=== PATIENT | female | born 1955 | race Two or more races ===

== ENCOUNTER 2018-01-31 13:39 | Emergency (ER) | payer MEDICAID ==
[~2018-01-31] VITALS: Ht 152.4 cm; Wt 64.4 kg
[~2018-01-31 13:39] MED LIST: NORPTMEDS
[2018-01-31 15:48] VITALS: BP 129/83
[2018-01-31] MEDS ORDERED: KETOROLAC TROMETH 30 MG/ML 1ML VIAL IM ONE (16:30)
[2018-01-31] MEDS ORDERED: HYDROcodone-ACET 5/325MG TAB PO ONE (16:30)
== END 2018-01-31 17:54 | disposition home or self-care (01) ==
LOC: ER 13:44
DX: M54.9 Dorsalgia, unspecified (principal); G89.29 Other chronic pain; I10 Essential (primary) hypertension; F17.210 Nicotine dependence, cigarettes, uncomplicated
CPT/HCPCS: 72100; 96372; 99284; J1885

== ENCOUNTER 2018-02-20 20:47 | Emergency (ER) | payer MEDICAID, OTHER ==
[~2018-02-20] VITALS: Ht 152.4 cm; Wt 65.3 kg
[2018-02-20 21:43] LABS: Basophils # (auto) 0 uL; Basophils % (auto) 0.7 % (0.0-2.0); Eosinophils # (auto) 0 uL; Eosinophils % (auto) 0.8 % (0.0-7.0); Hematocrit 42.6 % (36.0-46.0); Hemoglobin 14.7 g/dL (12.2-16.2); Lymphocytes # (auto) 2.1 uL; Lymphocytes % (auto) 40.9 % (10.0-50.0); Mean Corpuscular Hemoglobin 29.8 pg (28.0-32.0); Mean Corpuscular Hgb Conc. 34.4 g/dL (32.0-36.0); Mean Corpuscular Volume 86.6 fL (80.0-100.0); Monocytes # (auto) 0.4 uL; Monocytes % (auto) 8.3 % (0.0-12.0); Neutrophils # (auto) 2.5 uL; Neutrophils % (auto) 49.3 % (37.0-80.0); Nucleated Red Blood Cells % 0.3 %; Platelet Count (auto) 139 10^3/uL (140-450); Red Blood Cells 4.92 10^6/uL (4.0-5.20); Red Cell Distribution Width 14.3 % (11.8-14.3); White Blood Cell 5.2 10^3/uL (4.4-10.8)
[2018-02-20 22:04] LABS: Alanine Aminotransferase 72 U/L (13-56); Albumin 3.4 g/dL (3.4-5.0); Alkaline Phosphatase 99 U/L (45-117); Anion Gap 9 (5-15); Aspartate Aminotransferase 67 U/L (15-37); BUN/Creatinine Ratio 22.5; Bilirubin, Total 0.4 mg/dL (0.2-1.0); Blood Urea Nitrogen 16 mg/dL (7-18); Calcium 8.9 mg/dL (8.5-10.1); Carbon Dioxide 28 mmol/L (21-32); Chloride 102 mmol/L (98-107); GFR African American 107 mL/min; GFR Non-African American 88 mL/min; Glucose 94 mg/dL (74-106); Potassium 3.6 mmol/L (3.5-5.1); Sodium 139 mmol/L (136-145); Total Protein 8.2 g/dL (6.4-8.2)
[2018-02-21 01:39] VITALS: BP 96/128
== END 2018-02-21 03:52 | disposition home or self-care (01) ==
LOC: ER 20:47
DX: G51.0 Bell's palsy (principal); E11.9 Type 2 diabetes mellitus without complications; I10 Essential (primary) hypertension
CPT/HCPCS: 36415; 70450; 80053; 84484; 85025; 93005

== ENCOUNTER 2024-05-29 06:45 | Inpatient (IN) | payer MEDICARE, OTHER ==
[~2024-05-29] VITALS: Ht 149.9 cm; Wt 64.0 kg
[2024-05-29] VITALS (9 sets, daily range): BP systolic 167; BP diastolic 85; PULSE 92–103; RESP 18–27; TEMP 97.6; O2SAT 93–99
[2024-05-29 07:18] LABS: Hematocrit 41.9 % (36.0-46.0); Hemoglobin 14.1 g/dL (12.2-16.2); Mean Corpuscular Hemoglobin 27.6 pg (28.0-32.0); Mean Corpuscular Hgb Conc. 33.6 g/dL (32.0-36.0); Platelet Count (auto) 110 10^3/uL (140-450); Red Blood Cells 5.11 10^6/uL (4.0-5.20); Red Cell Distribution Width 14.2 % (11.8-14.3); White Blood Cell 18.1 10^3/uL (4.4-10.8)
--- NOTE | 2024-05-29 07:21 | ED.PDOC ---
SOB-HPI HPI Comments 69 year old female presents to the ED with chief complaint of SOB. Patient reports that she has been experiencing SOB since 05/23, worsening over the past 3 days and with associated symptoms of right sided chest pain that radiates to her back and bloody productive cough. Patient relays that she has history of bronchitis and has an Albuterol inhaler at home for treatment, which she used with some relief noted. Patient denies any fever, chills, headache, abdominal pain, dizziness, or N/V/D. Chief Complaint: Shortness of Breath Time Seen by MD: 07:14 Primary Care Provider: ARIELA Yang notes: Nurses Notes, Medications, Allergies Information Source: Patient Mode of Arrival: Ambulatory Severity: Moderate Timing: Weeks Duration: Since onset Context: At Rest PE Risk Factors: None History of: None Prehospital treatment: Breathing Tx Modifying Factors: Nothing Associated Signs and Symptoms: Cough, Hemoptysis, Chest Pain Quality: Aching Radiation: Back Location: Chest (R) If cough with SOB: Productive, Bloody Past Medical History PAST MEDICAL HISTORY: DM, HTN, Liver, [place] Past Medical History (Other): Hepatitis C Surgical History: Denies all surgeries GUIDANCE DIRECTOR History: No Pertinent GUIDANCE DIRECTOR History Family History Family History: Reviewed,noncontributory to illness, Unknown Social History Smoker: Cigarettes Alcohol: Sober Drugs: Marijuana Lives In: Home Constitutional: denies: chills, diaphoresis, fatigue, fever, malaise, sweats, weakness, others EENTM: denies: blurred vision, double vision, ear bleeding, ear discharge, ear drainage, ear pain, ear ringing, eye pain, eye redness, hearing loss, mouth pain, mouth swelling, nasal discharge, nose bleeding, nose congestion, nose pain, photophobia, tearing, throat pain, throat swelling, voice changes, others Respiratory: reports: cough, hemoptysis, shortness of breath; denies: orthopnea, SOB at rest, SOB with excertion, stridor, wheezing, others Cardiovascular: reports: chest pain (Right sided); denies: dizzy spells, diaphoresis, Dyspnea on exertion, edema, irregular heart beat, left arm pain, lightheadedness, palpitations, PND, syncope, others Gastrointestinal: denies: abdomen distended, abdominal pain, blood streaked bowels, constipated, diarrhea, dysphagia, difficulty swallowing, hematemesis, melena, nausea, poor appetite, poor fluid intake, rectal bleeding, rectal pain, vomiting, others Genitourinary: denies: abnormal vagina bleeding, burning, dyspareunia, dysuria, flank pain, frequency, hematuria, incontinence, pain, , vagina discharge, urgency, others Neurological: denies: dizziness, fainting, headache, left sided numbness, left sided weakness, numbness, paresthesia, pre-existing deficit, right sided numbness, right sided weakness, seizure, speech problems, tingling, tremors, weakness, others Musculoskeletal: denies: back pain, gout, joint pain, joint swelling, muscle pain, muscle stiffness, neck pain, others Integumetry: denies: bruises, change in color, change in hair/nails, dryness, laceration, lesions, lumps, rash, wounds, others Allergic/Immunocompromised: denies: Difficulty Healing, Frequent Infections, Hives, Itching, others Hematologic/Lymphatic: denies: anemia, blood clots, easy bleeding, easy bruising, swollen glands, others Endocrine: denies: excessive hunger, excessive sweating, excessive thirst, excessive urination, flushing, intolerance to cold, intolerance to heat, unexplained weight gain, unexplained weight loss, others Psychiatric: denies: anxiety, bipolar disorder, depression, hopeless, panic disorder, schizophrenia, sleepless, suicidal, others All Other Systems: Reviewed and Negative Physical Exam General Appearance: Mild Distress, Normal HEENT: Normal ENT Inspection, PERRL/EOMI Neck: Full Range of Motion, Non-Tender, Normal, Normal Inspection Respiratory: Chest Non-Tender, Lungs Clear, No Accessory Muscle Use, No Respiratory Distress, Normal Breath Sounds Cardiovascular: No Edema, No JVD, No Murmur, No Gallop, Normal Peripheral Pulses, Tachycardia Breast Exam: Deferred Gastrointestinal: No Organomegaly, Non Tender, No Pulsatile Mass, Normal Bowel Sounds, Soft Genitalia: Deferred Pelvic: Deferred Rectal: Deferred Extremities: No calf tenderness, Normal capillary refill, Normal inspection, Normal range of motion, Non-tender, No pedal edema Musculoskeletal : Apperance: Normal Neurologic: Alert, functional director II-XII nml as Tested, No Motor Deficits, Normal Affect, Normal Mood, No Sensory Deficits Cerebellar Function: Normal Reflexes: Normal Skin: Dry, Normal Color, Warm Lymphatic: No Adenopathy Was a procedure done? Was a procedure done?: No Differential Dx Differential Diagnosis: Asthma, Bronchitis, COPD, Pneumonia, Pulmonary Embolism, URI X-Ray, Labs, Meds, VS Vital Signs Date Time Temp Pulse Resp B/P (MAP) Pulse Ox O2 Delivery O2 Flow Rate FiO2 05/29/24 07:25 98.0 116 17 154/70 (98) 94 98.0 05/29/24 07:25 116 17 05/29/24 06:55 111 05/29/24 06:50 22 94 Room Air* 0 21 05/29/24 06:50 98.3 124 22 180/75 (110) 94 Lab Test 05/29/24 07:56 05/29/24 07:03 Range/Units Troponin I High Sensitivity 10 10 </=34 ng/L White Blood Count 18.1 H 4.4-10.8 10^3/uL Red Blood Count 5.11 4.0-5.20 10^6/uL Hemoglobin 14.1 12.2-16.2 g/dL Hematocrit 41.9 36.0-46.0 % Mean Corpuscular Volume 82.0 80.0-100.0 fL Mean Corpuscular Hemoglobin 27.6 L 28.0-32.0 pg Mean Corpuscular Hemoglobin Concent 33.6 32.0-36.0 g/dL Red Cell Distribution Width 14.2 11.8-14.3 % Platelet Count 110 L 140-450 10^3/uL Mean Platelet Volume 10.4 6.9-10.8 fL Neutrophils (%) (Auto) 37.0-80.0 % Lymphocytes (%) (Auto) 10.0-50.0 % Monocytes (%) (Auto) 0.0-12.0 % Basophils (%) (Auto) 0.0-2.0 % Neutrophils # (Auto) 1.6-8.6 10 ^3/uL Lymphocytes # (Auto) 0.4-5.4 10 ^3/uL Monocytes # (Auto) 0-1.3 10 ^3/uL Differential Total Cells Counted Pending Neutrophils % (Manual) Pending Band Neutrophils % (Manual) Pending Lymphocytes % (Manual) Pending Monocytes % (Manual) Pending Eosinophils % (Manual) Pending Basophils % (Manual) Pending Metamyelocytes % (manual) Pending Myelocytes % (Manual) Pending Promyelocytes % (Manual) Pending Blast Cells % (Manual) Pending Reactive Lymphocytes Pending Platelet Estimate Pending Prothrombin Time 11.4 9.3-11.8 sec Prothrombin Time INR 1.08 0.9-1.15 D-Dimer, Quantitative 0.97 H 0.0-0.49 mg/L FEU Sodium Level 137 136-145 mmol/L Potassium Level 3.4 L 3.5-5.1 mmol/L Chloride Level 104 98-107 mmol/L Carbon Dioxide Level 19 L 20-31 mmol/L Anion Gap 14 5-15 Blood Urea Nitrogen 11 9-23 mg/dL Creatinine 0.68 0.550-1.02 mg/dL Glomerular Filtration Rate Calc 94 >90 mL/min BUN/Creatinine Ratio 16.2 10.0-20.0 Serum Glucose 130 H 74-106 mg/dL Calcium Level 9.3 8.7-10.4 mg/dL Total Bilirubin 1.3 H 0.2-1.0 mg/dL Aspartate Amino Transferase (AST) 42 H 13-40 U/L Alanine Aminotransferase (ALT) 29 7-40 U/L Alkaline Phosphatase 116 46-116 U/L B-Type Natriuretic Peptide 101.24 0-100 pg/mL Total Protein 6.9 5.7-8.2 g/dL Albumin 3.9 3.2-4.8 g/dL Current Medications Medications (Trade) Dose Ordered Sig/Jim Route Start Time Stop Time Status Last Admin Sodium Chloride 1,000 ml @ 1,000 mls/hr Q1H ONCE IV 05/29/24 08:00 05/29/24 08:59 05/29/24 08:14 Loperamide HCl (Imodium Capsule) 4 mg ONCE ONCE PO 05/29/24 08:15 05/29/24 08:16 DC 05/29/24 08:14 Chest XR: FINDINGS: Lines and Tubes: None Lungs: Multifocal airspace disease. Pleura: No effusion. Lucency along the right lateral chest wall. Cardiomediastinal contours: Unremarkable Bones: Chronic appearing healing fracture of the left humerus. IMPRESSION: Multifocal airspace disease, [id number]. Prominent lucency along the right lateral chest may represent a prominent skin fold versus small pneumothorax. Clinical correlation advised. CT could be obtained to further evaluate if clinically indicated. CT Angio Chest: Findings: Pulmonary artery: There is no evidence of a pulmonary arterial filling defect to suggest pulmonary embolism. The main pulmonary artery demonstrates normal caliber. Lungs/Pleura: There are moderate size lobular areas of consolidation in the right middle lobe and posterior left lower lobe. There are smaller similar ar eas of airspace disease in the right upper lobe and minimally in the right lower lobe. There is no evidence of pleural effusion or pneumothorax. The central airways are clear. Heart/Vascular Structures: Normal heart size. The thoracic aorta demonstrates normal caliber. There is no evidence of pericardial effusion. Lymph Nodes: There is no evidence of thoracic lymphadenopathy. Musculoskeletal: No acute osseous abnormality. Upper abdomen: Limited portions of the upper abdomen are unremarkable. IMPRESSION: 1. There is no evidence of a pulmonary arterial filling defect to suggest pulmonary embolism. 2. There there are multilevel areas of lobular consolidation, moderate in size in the right middle lobe and posterior left lower lobe. Findings are compatible with multilobar pneumonia. Clinical correlation is recommended. Images Reviewed?: Images reviewed and evaluated by me Time of 1ST Reevaluation: 08:14 Reevaluation 1ST: Unchanged Time of 2ND Reevaluation: 08:47 Reevaluation 2ND: Unchanged (requiring oxygen 4 L/min by NC, will admit for oxygen and supportive care) Patient Education/Counseling: Diagnosis, Treatment Family Education/Counseling: No Family Present Departure 1 Departure Time of Disposition: 08:46 Impression: Primary Impression: Respiratory failure with hypoxia Additional Impression: Pneumonia Disposition: ADMITTED INPATIENT Condition: Guarded Critical Care Note Critical Care Time?: No Stability Stability form required: No Heart Score Heart Score: Heart Score Response (Comments) Value History N/A 0 EKG N/A 0 Age N/A 0 Risk Factors N/A 0 Troponin N/A 0 Total 0 I personally scribed for RODIRGO LIZAMA MD ([email or web address]) on 05/29/24 at 07:21. Electronically submitted by Ramsey Villagran ([email or web address]). I personally scribed for RODRIGO LIZAMA MD ([email or web address]) on 05/29/24 at 07:22. Electronically submitted by Ramsey Villagran ([email or web address]). I personally scribed for RODRIGO LIZAMA MD ([email or web address]) on 05/29/24 at 07:50. Electronically submitted by Ramsey Villagran ([email or web address]). I personally scribed for RODRIGO LIZAMA MD ([email or web address]) on 05/29/24 at 08:44. Electronically submitted by Ramsey Villagran ([email or web address]). RODRIGO LIZAMA MD May 29, 2024 07:21
[2024-05-29 07:27] LABS: Alanine Aminotransferase 29 U/L (7-40); Albumin 3.9 g/dL (3.2-4.8); Alkaline Phosphatase 116 U/L (46-116); Anion Gap 14 (5-15); Aspartate Aminotransferase 42 U/L (13-40); BUN/Creatinine Ratio 16.2 (10.0-20.0); Blood Urea Nitrogen 11 mg/dL (9-23); Calcium 9.3 mg/dL (8.7-10.4); Carbon Dioxide 19 mmol/L (20-31); Chloride 104 mmol/L (98-107); Glucose 130 mg/dL (74-106); INR 1.08 (0.9-1.15); Potassium 3.4 mmol/L (3.5-5.1); Prothrombin Time 11.4 sec (9.3-11.8); Sodium 137 mmol/L (136-145)
[2024-05-29 07:28] LABS: Bilirubin, Total 1.3 mg/dL (0.2-1.0); Total Protein 6.9 g/dL (5.7-8.2)
[2024-05-29 07:31] LABS: Basophils % (manual) 0 (0.0-2.0); Blast Cells 0; Eosinophils % (manual) 0 (0-7); Metamyelocytes % 0; Myelocytes % 0; Promyelocytes % 0; Reactive Lymphocytes 0
--- NOTE | 2024-05-29 07:47 | DVH ---
CHEST RADIOGRAPH Indication: SOB Technique: Single frontal view of the chest was obtained COMPARISON: None FINDINGS: Lines and Tubes: None Lungs: Multifocal airspace disease. Pleura: No effusion. Lucency along the right lateral chest wall. Cardiomediastinal contours: Unremarkable Bones: Chronic appearing healing fracture of the left humerus. IMPRESSION: Multifocal airspace disease, [id number]-left. Prominent lucency along the right lateral chest may represent a prominent skin fold versus small pneu mothorax. Clinical correlation advised. CT could be obtained to further evaluate if clinically indica terra.
[2024-05-29] MEDS: SODIUM CHLORIDE 0.9% 1,000 ML IV ONE (08:14)
[2024-05-29] MEDS: LOPERAMIDE HCL 2 MG CAP/TAB PO ONE (08:14)
[2024-05-29] MEDS: IOHEXOL 350 MG/ML 100ML IJ ONE (08:17)
--- NOTE | 2024-05-29 08:37 | DVH ---
CTA CHEST INDICATION: SOB TECHNIQUE: Multidetector CTA of the chest was performed of the chest with 100 cc of intravenous contr ast. PULMONARY ANGIOGRAPHY PROTOCOL was utilized using a bolus-tracking technique centered on the wilfrido n pulmonary artery. Axial, coronal and sagittal multiplanar and MIP reformats were performed. Radiation Dose Information: CT Dose: CTDI volume is 10.5 mGy. Dose-length product is 349 mGy*cm The dose indicators for CT are the volume Computed Tomography (CT) Dose Index (CTDIvol) and the Dose Length Product (DLP), and are measured in units of mGy and mGy-cm, respectively. These indicators are not patient dose, but values generated from the CT scanner acquisition factors. The report includes radiation exposure data for exposures received during this examination. Comparison: None. Findings: Pulmonary artery: There is no evidence of a pulmonary arterial filling defect to suggest pulmonary e mbolism. The main pulmonary artery demonstrates normal caliber. Lungs/Pleura: There are moderate size lobular areas of consolidation in the right middle lobe and po sterior left lower lobe. There are smaller similar areas of airspace disease in the right upper lobe and minimally in the right lower lobe. There is no evidence of pleural effusion or pneumothorax. Th e central airways are clear. Heart/Vascular Structures: Normal heart size. The thoracic aorta demonstrates normal caliber. There is no evidence of pericardial effusion. Lymph Nodes: There is no evidence of thoracic lymphadenopathy. Musculoskeletal: No acute osseous abnormality. Upper abdomen: Limited portions of the upper abdomen are unremarkable. IMPRESSION: 1. There is no evidence of a pulmonary arterial filling defect to suggest pulmonary embolism. 2. There there are multilevel areas of lobular consolidation, moderate in size in the right middle l obe and posterior left lower lobe. Findings are compatible with multilobar pneumonia. Clinical correl ation is recommended. HS:Y
[2024-05-29 08:51] LABS: Band Neutrophils % (manual) 6; Large Platelets FEW; Lymphocytes % (manual) 4 (10.0-50.0); Monocytes % (manual) 17 (0-12); Platelet Estimate Decrea
[2024-05-29] MEDS: cefTRIAXone 1GM/50ML D5W 50 ML IV ONE (08:56)
[2024-05-29] MEDS: AZITHROMYCIN 500MG/ 250ML 250 ML IV ONE (09:26)
[2024-05-29] MEDS ORDERED: hydrALAZINE HCL 20 MG/ML VL IV PRN (09:45)
[2024-05-29] MEDS: hydrALAZINE HCL 20 MG/ML VL IV ONE (10:05)
[2024-05-29] MEDS: POTASSIUM EFFERVESENT TAB 25 MEQ GT ONE (10:08)
[2024-05-29] MEDS ORDERED: LOPERAMIDE HCL 2 MG CAP/TAB PO PRN (10:15)
[2024-05-29 10:16] LABS: Lactic Acid w/Reflex 2.1 mmol/L (0.4-2.0)
[2024-05-29] MEDS ORDERED: MORPHINE SULFATE INJ 2 MG/ml SYRG IV PRN ×2 (10:30)
[2024-05-29] MEDS ORDERED: DOCUSATE SOD 100 MG CAP PO PRN (10:30)
[2024-05-29] MEDS: SODIUM CHLORIDE 0.9% 1,000 ML IV SCH (10:30)
[2024-05-29] MEDS ORDERED: ONDANSETRON HCL 4 MG/2 ML VIAL IV PRN (10:30)
[2024-05-29] MEDS ORDERED: ALBUTEROL SULF 2.5 MG/0.5ML(0.5%) NEB SOLN NEB PRN (10:30)
[2024-05-29] MEDS ORDERED: ACETAMINOPHEN 325 MG TAB PO PRN (10:30)
[2024-05-29] MEDS ORDERED: NITROGLYCERIN 0.4 MG SL TAB SL PRN (10:30)
[2024-05-29] MEDS ORDERED: HYDROcodone-ACET 5/325MG TAB PO PRN (10:30)
--- NOTE | 2024-05-29 10:30 | DVHHP2 ---
History of Present Illness Reason for Visit: Shortness of breath History of Present Illness Bhavna Cosme is a 69YO F with pmHx of Bronchitis and HTN who presents to the ED for shortness of breath and diarrhea x 5 days. Upon examination patient reports that she recently had the flu and recently recovered. Patient reports s he uses an inhaler for her shortness of breath but came in because her symptoms were progressively getting worse. Patient also reports coughing up bloody phlegm for the past several days. Patient denies fever, chills, abdominal pain, dizziness, N/V and hematuria. Cardiovascular: HTN Pulmonary: Bronchitis Past Surgical History: Tubal Ligation Family History: None Smoke: No ALCOHOL: rare Drugs: None Lives: with Family Domestic Violence: Neg Review of Systems Constitutional: No: Fever, Chills, Sweats, Weakness, Malaise, Other Eyes: No: Pain, Vision change, Conjunctivae inflammation, Eyelid inflammation, Other, Redness ENT: No: Ear pain, Ear discharge, Nose pain, Nose discharge, Nose congestion, Mouth pain, Mouth swelling, Throat pain, Throat swelling, Other Respiratory: Cough, Shortness of breath, SOB with excertion; No: Dry, Wheezing, Hemoptysis, Pleuritic Pain, Sputum, Wheezing, Other Cardiovascular: No: Chest Pain, Palpitations, Orthopnea, Paroxysmal Noc. Dyspnea, Edema, Lt Headedness, Other Gastrointestinal: Diarrhea; No: Nausea, Vomiting, Abdominal Pain, Constipation, Melena, Hematochezia, Other Genitourinary: No Dysuria, No Frequency, No Incontinence, No Hematuria, No Retention, No Other Musculoskeletal: No: other, neck pain, shoulder pain, arm pain, back pain, hand pain, leg pain, foot pain Skin: No: Rash, Lesions, Jaundice, Bruising, Other Neurological: No: Weakness, Numbness, Incoordination, Change in speech, Confusion, Seizures, Other Allergies: Coded Allergies: NO KNOWN ALLERGIES (Unverified , 04/28/15) Medications Current Medications Medications Dose Ordered Sig/Jim Route Start Time Stop Time Status Last Admin Dose Admin Hydralazine HCl 10 mg Q6HP PRN IV 05/29/24 09:45 UNV Exam Vital Signs Vital Signs Date Time Temp Pulse Resp B/P (MAP) Pulse Ox O2 Delivery O2 Flow Rate FiO2 11/27/24 08:56 104 19 183/64 (103) 98 05/29/24 07:25 98.0 98.0 05/29/24 06:50 Room Air* 0 21 General Appearance: Alert, Oriented X3, Cooperative HEENT: PERRLA, EOMI, Mucous membr. moist/pink Respiratory: Normal air movement Cardiovascular: Normal S1, Normal S2, No murmurs Abdominal: Normal bowel sounds, Soft, No tenderness, No hepatospenomegaly Extremities: No clubbing, No cyanosis, No edema, Normal pulses, No tenderness/swelling Skin: No rashes, No breakdown, No significant lesion Neuro: Normal gait, Normal speech, Strength at 5/5 X4 ext, Normal tone, Sensation intact Psych/Mental Status: Mental status NL, Mood NL Labs/Xrays Labs Test 05/29/24 09:36 05/29/24 07:03 Range/Units White Blood Count 18.1 H 4.4-10.8 10^3/uL Red Blood Count 5.11 4.0-5.20 10^6/uL Hemoglobin 14.1 12.2-16.2 g/dL Hematocrit 41.9 36.0-46.0 % Mean Corpuscular Volume 82.0 80.0-100.0 fL Mean Corpuscular Hemoglobin 27.6 L 28.0-32.0 pg Mean Corpuscular Hemoglobin Concent 33.6 32.0-36.0 g/dL Red Cell Distribution Width 14.2 11.8-14.3 % Platelet Count 110 L 140-450 10^3/uL Mean Platelet Volume 10.4 6.9-10.8 fL Neutrophils (%) (Auto) 37.0-80.0 % Lymphocytes (%) (Auto) 10.0-50.0 % Monocytes (%) (Auto) 0.0-12.0 % Basophils (%) (Auto) 0.0-2.0 % Neutrophils # (Auto) 1.6-8.6 10 ^3/uL Lymphocytes # (Auto) 0.4-5.4 10 ^3/uL Monocytes # (Auto) 0-1.3 10 ^3/uL Differential Total Cells Counted 100.0 100 Neutrophils % (Manual) 73 37.0-80.0 Band Neutrophils % (Manual) 6 Lymphocytes % (Manual) 4 L 10.0-50.0 Monocytes % (Manual) 17 H 0-12 Eosinophils % (Manual) 0 0-7 Basophils % (Manual) 0 0.0-2.0 Metamyelocytes % (manual) 0 Myelocytes % (Manual) 0 Promyelocytes % (Manual) 0 Blast Cells % (Manual) 0 Reactive Lymphocytes 0 Platelet Estimate Decrea Large Platelets Few Prothrombin Time 11.4 9.3-11.8 sec Prothrombin Time INR 1.08 0.9-1.15 D-Dimer, Quantitative 0.97 H 0.0-0.49 mg/L FEU Sodium Level 137 136-145 mmol/L Potassium Level 3.4 L 3.5-5.1 mmol/L Chloride Level 104 98-107 mmol/L Carbon Dioxide Level 19 L 20-31 mmol/L Anion Gap 14 5-15 Blood Urea Nitrogen 11 9-23 mg/dL Creatinine 0.68 0.550-1.02 mg/dL Glomerular Filtration Rate Calc 94 >90 mL/min BUN/Creatinine Ratio 16.2 10.0-20.0 Serum Glucose 130 H 74-106 mg/dL Calcium Level 9.3 8.7-10.4 mg/dL Total Bilirubin 1.3 H 0.2-1.0 mg/dL Aspartate Amino Transferase (AST) 42 H 13-40 U/L Alanine Aminotransferase (ALT) 29 7-40 U/L Alkaline Phosphatase 116 46-116 U/L B-Type Natriuretic Peptide 101.24 0-100 pg/mL Total Protein 6.9 5.7-8.2 g/dL Albumin 3.9 3.2-4.8 g/dL CTA CHEST INDICATION: SOB Comparison: None. Findings: Pulmonary artery: There is no evidence of a pulmonary arterial filling defect to suggest pulmonary embolism. The main pulmonary artery demonstrates normal caliber. Lungs/Pleura: There are moderate size lobular areas of consolidation in the right middle lobe and posterior left lower lobe. There are smaller similar areas of airspace disease in the right upper lobe and minimally in the right lower lobe. There is no evidence of pleural effusion or pneumothorax. The central airways are clear. Heart/Vascular Structures: Normal heart size. The thoracic aorta demonstrates normal caliber. There is no evidence of pericardial effusion. Lymph Nodes: There is no evidence of thoracic lymphadenopathy. Musculoskeletal: No acute osseous abnormality. Upper abdomen: Limited portions of the upper abdomen are unremarkable. IMPRESSION: 1. There is no evidence of a pulmonary arterial filling defect to suggest pulmonary embolism. 2. There there are multilevel areas of lobular consolidation, moderate in size in the right middle lobe and posterior left lower lobe. Findings are compatible with multilobar pneumonia. Clinical correlation is recommended. CHEST RADIOGRAPH Indication: SOB FINDINGS: Lines and Tubes: None Lungs: Multifocal airspace disease. Pleura: No effusion. Lucency along the right lateral chest wall. Cardiomediastinal contours: Unremarkable Bones: Chronic appearing healing fracture of the left humerus. IMPRESSION: Multifocal airspace disease, [id number]-mjvy-left. Prominent lucency along the right lateral chest may represent a prominent skin fold versus small pneumothorax. Clinical correlation advised. CT could be obtained to further evaluate if clinically indicated. Assessment/Plan Assessment/Plan Assessment: Acute on chronic COPD exacerbation with PNA Sepsis Transaminitis Hypokalemia Hx of Bronchitis HTN Plan: Admit to tele Pain management IVf Resp txs O2 prn diet as tolerated IV and PO ABx Antihypertensives Antidiarrheals Steroids CT chest noted CXR noted Blood cultures Trend troponin's Trend lactic acid Monitor labs AM labs Home medications reconciled Discussed plan of care with patient and nurse Plan discussed with: Patient My Orders Orders - RAUL DIXON Procedure Category Date Status Time Hydralazine Injection PHA 05/29/24 Logged (Apresoline Inject 09:45 Hydralazine Injection PHA 05/29/24 Logged (Apresoline Inject 09:45 Potassium Effervesent PHA 05/29/24 Logged Tab (Klor-Con/Ef) 10:00 Problem List: (1) Respiratory failure with hypoxia (2) Pneumonia (3) Sepsis (4) Hypertension Date of Service: May 29, 2024 Billing Provider: RAUL DIXON Common Visit Codes: [id number] INP/OBS CARE (MOD) RAUL DIXON May 29, 2024 10:30
[2024-05-29] MEDS ORDERED: PARO1TAB33 PO (10:33)
[2024-05-29] MEDS ORDERED: MONT-8 PO (10:33)
[2024-05-29] MEDS ORDERED: EMPA1TAB PO (10:33)
--- NOTE | 2024-05-29 10:40 | ECG ---
[facility] Test Date: 2024-05-29 Test Time: 06:55:31 Pat Name: MELANY CARLSON Department: ER Room: [address] [place] [address] Gender: F Uke Driver: BIJAL : 1955 Requested By: RODRIGO LIZAMA Order Number: [id number] Reading MD: Riaz Miller Measurements Intervals [place] Rate: 111 P: 56 NE: 138 QRS: 73 QRSD: 87 T: 71 QT: 345 QTc: 469 Interpretive Statements Sinus tachycardia Borderline T abnormalities, anterior leads Electronically Signed On 05-29-2024 14:18:31 PST by Riaz Miller Please click the below link to view image of tracing.
[2024-05-29] MEDS ORDERED: ACETAMINOPHEN 500 MG TAB PO PRN (10:45)
[2024-05-29] MEDS: methylPREDNISolone SOD SUCC 40 MG/ML VL IV ONE (10:48)
[2024-05-29 11:38] LABS: CRP High Sensitivity 6.56 mg/dL (<1.0)
[2024-05-29 11:50] LABS: Erythrocyte Sedimentation Rate 25 mm/hr (0-20)
[2024-05-29] MEDS: ALBUTEROL SULF 2.5 MG/0.5ML(0.5%) NEB SOLN NEB SCH (13:13)
[2024-05-29] MEDS: ASCORBIC ACID 500 MG TAB PO SCH (22:09)
[2024-05-30] VITALS (14 sets, daily range): BP systolic 137–167; BP diastolic 56–103; PULSE 82–125; RESP 17–20; TEMP 97.5–99.9; O2SAT 93–100
[2024-05-30 07:19] LABS: Basophils # (auto) 0 10 ^3/uL (0-0.2); Basophils % (auto) 0.1 % (0.0-2.0); Eosinophils # (auto) 0 10 ^3/uL (0-0.8); Hematocrit 38.4 % (36.0-46.0); Hemoglobin 12.7 g/dL (12.2-16.2); Lymphocytes # (auto) 0.8 10 ^3/uL (0.4-5.4); Lymphocytes % (auto) 4.9 % (10.0-50.0); Mean Corpuscular Hemoglobin 27.2 pg (28.0-32.0); Mean Corpuscular Volume 82.5 fL (80.0-100.0); Monocytes # (auto) 1.7 10 ^3/uL (0-1.3); Monocytes % (auto) 10.4 % (0.0-12.0); Neutrophils # (auto) 13.7 10 ^3/uL (1.6-8.6); Neutrophils % (auto) 84.6 % (37.0-80.0); Platelet Count (auto) 138 10^3/uL (140-450); Red Blood Cells 4.66 10^6/uL (4.0-5.20); Red Cell Distribution Width 14.1 % (11.8-14.3); White Blood Cell 16.2 10^3/uL (4.4-10.8)
[2024-05-30 07:24] LABS: Alanine Aminotransferase 26 U/L (7-40); Albumin 3.4 g/dL (3.2-4.8); Alkaline Phosphatase 101 U/L (46-116); Anion Gap 11 (5-15); Aspartate Aminotransferase 36 U/L (13-40); BUN/Creatinine Ratio 21.3 (10.0-20.0); Blood Urea Nitrogen 13 mg/dL (9-23); Calcium 9.1 mg/dL (8.7-10.4); Carbon Dioxide 22 mmol/L (20-31); Chloride 103 mmol/L (98-107); Sodium 136 mmol/L (136-145)
[2024-05-30 07:25] LABS: Bilirubin, Total 1.1 mg/dL (0.2-1.0); Total Protein 6.3 g/dL (5.7-8.2)
[2024-05-30 07:30] LABS: Glucose 108 mg/dL (74-106); Potassium 3.3 mmol/L (3.5-5.1)
[2024-05-30 07:55] LABS: Magnesium 2.1 mg/dL (1.6-2.6)
[2024-05-30 07:58] LABS: Phosphorus 2.3 mg/dL (2.4-5.1)
[2024-05-30] MEDS: LOSARTAN POTASSIUM 50 MG TAB PO SCH ×2 (09:28→18:09)
[2024-05-30] MEDS: cefTRIAXone 1GM/50ML D5W 50 ML IV SCH (09:28)
[2024-05-30] MEDS: ZINC SULFATE 220mg CAP or TAB PO SCH (09:28)
[2024-05-30] MEDS: MULTIPLE VITAMIN TAB PO SCH (09:29)
[2024-05-30] MEDS: AZITHROMYCIN 250 MG TAB PO SCH (09:30)
[2024-05-30] MEDS ORDERED: AZITHROMYCIN 250 MG TAB PO SCH (10:00)
[2024-05-30] MEDS ORDERED: methylPREDNISolone SOD SUCC 40 MG/ML VL IV SCH (10:00)
[2024-05-30 10:36] LABS: Rapid Influenza A Negative (Negative); Rapid Influenza B Negative (Negative)
[2024-05-30 10:37] LABS: COVID19 ANTIGEN SOFIA FIA NEGATIVE (NEGATIVE)
[2024-05-30] MEDS: POTASSIUM CHLORIDE 60 MEQ, LIDOCAINE 1% (LOCAL ANESTH.) 6 ML in SODIUM CHL 0.9% 500 ML IV ONE (11:36)
--- NOTE | 2024-05-30 13:58 | DVHSR ---
APPROVED REPORT EXAM: Two-dimensional and M-mode echocardiogram with Doppler and color Doppler. INDICATION rule out chf DIMENSIONS LVDd3.9 (3.8-5.7cm)LA (2D)3.3 (1.9-4.0cm)Aortic Root3.4 (2.0-3.7cm) LVDs2.7 (2.5-4.0cm)LA (MM) (1.9-4.0cm)Aortic Cusp Exc1.6 (1.5-2.0cm) EF (%) 60.4 (55-70%)Rt. Atrium2.7 (1.9-4.0cm)Asc. Aorta cm IVSd1.1 (0.7-1.1cm)RV (D)2.2 (1.8-2.4cm) PWd1.0 (0.7-1.1cm) Mitral Valve MitralMitral Stenosis E wave0.63m/sMV Mean GR.mmHg A wave1.14m/sMV Peak GR.117mmHg E/A ratio0.62D MVAcm2 DECEL [id number] 1/2 [place] Aortic Valve Aortic ValveAortic Stenosis V11.16m/Cuate Mean GR.3mmHg V21.37m/Cuate Peak GR.7mmHg Pulmonic Valve V20.81m/s Tricuspid Valve TR Velocity2.32m/s [id number] Other Information Technically limited study due to body habitus. Conclusion Normal left ventricular size and dimension. Normal left ventricular systolic function estimated ejec tion fraction 55%. There is a grade1 diastolic dysfunction. Normal right ventricular size and dimension. Normal right ventricular systolic function. Estimated right ventricular systolic pressure 26 mm of mercury Normal biatrial size and dimension. Normal aortic valve structure and function. Normal mitral valve structure and function. Normal tricuspid valve structure and function. The pulmonary valve is grossly normal. No pericardial effusion.
[2024-05-30] MEDS ORDERED: VANCOMYCIN PER PHARMACY 0 MG IV SCH (16:00)
--- NOTE | 2024-05-30 16:16 | DVHPNRES ---
Progress Note Date Seen: May 30, 2024 Resident Creating Document: GONZALO FRANCOIS RESIDENT Has the PT tested + for MRSA If YES, has PT been informed?: No Medical Necessity Reason Pt with a Central, PICC or Fol: No Subjective Review of Systems A 69 year old woman with past medical history of COPD and hypertension come to the ED for shortness of breath for about 2 or 3 months ago but exacerbates from 5 days also patient came with a cough with bloody sputum and mild fevers. Pt had previously history of smoking Objective vital signs Vital Sign Date Time Temp Pulse Resp B/P (MAP) Pulse Ox O2 Delivery O2 Flow Rate FiO2 05/30/24 13:00 97.5 97 17 152/90 (110) 96 97.5 05/30/24 08:00 Nasal Cannula* 2 28 Total Intake and Output 05/29/24 05/29/24 05/30/24 15:00 23:00 07:00 Intake Total 1175 ml 700 ml Balance 1175 ml 700 ml medications Current Medications Medications Dose Ordered Sig/Jim Route Start Time Stop Time Status Last Admin Dose Admin Ceftriaxone Sodium 50 ml @ 100 mls/hr DAILY@09 IV 05/30/24 09:00 05/30/24 09:28 100 MLS/HR Sodium Chloride 1,000 ml @ 60 mls/hr [id number] IV 05/29/24 10:30 05/30/24 03:21 60 MLS/HR Acetaminophen/ Hydrocodone Bitart 1 tab Q4HP PRN PO 05/29/24 10:30 Ondansetron HCl 4 mg Q4HP PRN IV 05/29/24 10:30 Zinc Sulfate 220 mg DAILY PO 05/30/24 10:00 05/30/24 09:28 220 MG Ascorbic Acid 500 mg BID PO 05/29/24 22:00 05/30/24 09:30 500 MG Multivitamins 1 tab DAILY PO 05/30/24 10:00 05/30/24 09:29 1 TAB Acetaminophen 650 mg Q6HP PRN PO 05/29/24 10:30 Hold Nitroglycerin 0.4 mg Q5MINP PRN SL 05/29/24 10:30 Azithromycin 250 mg DAILY PO 05/30/24 10:00 05/30/24 09:30 250 MG Albuterol 2.5 mg Q4HR NEB 05/29/24 14:00 05/30/24 07:17 2.5 MG Albuterol 2.5 mg Q2HPRN PRN NEB 05/29/24 10:30 Acetaminophen 500 mg Q4HPRN PRN PO 05/29/24 10:45 Losartan Potassium 50 mg DAILY PO 05/30/24 10:00 05/30/24 09:28 50 MG Methylprednisolone Sodium Succinate 40 mg BID IV 05/30/24 22:00 Vancomycin HCl 0 ml @ 0 mls/hr UD IV 05/30/24 16:00 UNV Examination GEN: Healthy appearing, well-developed, NAD. with o2 2 lt PSYCH: Good Judgment. AOx3. Normal memory, mood, and affect. HEENT -Head: normocephalic atraumatic, no facial trauma, neck is supple -Eyes: PERRL, EOMI. No discharge or redness; -Ears: External ears are normal. Normal TMs. -Nose: Normal nares. NECK: Supple, with no masses. CV: RRR, no m/r/g. LUNGS: minished sounds with expiration wheezing ABD: Soft, ND/NT. No evidence of fluid wave. No pulsatile masses on exam, rebound tenderness, Liu sign or pain over Mcburney's point. : N/A SKIN: Warm, well perfused. No skin rashes or abnormal lesions. MSK: No deformities or signs of scoliosis. Normal gait. EXT: No clubbing, cyanosis, or edema. NEURO: Ambulating with no limitations. Normal muscle strength and tone. No focal deficits. laboratory and microbiology Laboratory Tests 05/30/24 06:35 Test 05/30/24 06:35 Range/Units Serum Glucose 108 H 74-106 mg/dL Microbiology Date/Time Source Procedure Growth Status 05/29/24 09:36 Blood Blood Culture - Preliminary NO GROWTH AFTER 24 HOURS OF INCUBATION. Resulted Problem List/Assessment/Plan Problem List/Assessment/Plan #Acute respiratory failure due to pneumonia and COPD exacerbation #Sepsis due to pneumonia and bacteremia gram positive #Hemoptysis #Acute on chronic COPD exacerbation #Acute on chronic diastolic heart failure #Hypertensive heart disease #Multilobar pneumonia due to gram + most likely #Transaminitis #Hypokalemia #Hypertension #PE ruled out Angio ct scan: 1. There is no evidence of a pulmonary arterial filling defect to suggest pulmonary embolism. 2. There there are multilevel areas of lobular consolidation, moderate in size in the right middle lobe and posterior left lower lobe. Findings are compatible with multilobar pneumonia. Clinical correlation is recommended. Blood culture: may 29: gram + cocci in clusters Further work up: Pulmonology consulted for possible bronchoscopy Viral panel negative Pending respiratory cultures and quantiferon O2 2 lts IV AB: ceftriaxone, vancomycin and azythromycin Breathing treatments Methylpredinosone 40 mg IV BID Fluids 60 cc/h Case discussed with Dr Melton Time spent on care 23 min Plan discussed with: Patient, Other My Orders My Orders Orders - GONZALO FRANCOIS RESIDENT Procedure Category Date Status Time Urinalysis LAB 05/30/24 Logged 07:25 Drug Screen LAB 05/30/24 Logged 07:25 Losartan Tablet PHA 05/30/24 In Process (Cozaar Tablet) 10:00 Mrsa Screen HENNY 05/30/24 In Process 09:48 Echo 2d Mode Cardiac US 05/30/24 Resulted DOP 08:20 *Consult CONS 05/30/24 Transmitted / 13:14 Methylprednisolone PHA 05/30/24 In Process Sod Succ (Solu Medrol 22:00 Hiv 1&2 Antibody LAB 05/30/24 In Process 13:14 Quantiferon-Tb Gold LAB 05/30/24 In Process 13:14 Respiratory Culture HENNY 05/30/24 Logged W/ Gs 13:14 Vancomycin Per PHA 05/30/24 Logged Pharmacy 16:00 Vancomycin 1.5gm/300ml PHA 05/30/24 In Process 16:00 Date of Service: May 30, 2024 Billing Provider: PAN MELTON MD Common Visit Codes: [id number] INP/OBS CARE(HIGH) GONZALO FRANCOIS RESIDENT May 30, 2024 16:16 PAN MELTON MD Jun 01, 2024 22:58
--- NOTE | 2024-05-30 18:14 | DVHINCON2 ---
Date of service: May 30, 2024 Referring Physician TERRELL Parra Reason for Consultation Hemoptysis History of Present Illness A 69-year-old woman with past medical history of COPD, bronchitis and hypertension who presents to the ED with c/o shortness of breath and diarrhea x 5 days with associated cough and hemoptysis. Patient reports that she recently recovered from the flu. States she uses an inhaler for shortness of breath but came in because symptoms were progressively getting worse. Also reports coughing up bloody phlegm for the past several days. Otherwise she denies fever, chills, abdominal pain, dizziness, N/V or hematuria. Patient was admitted for further care and pulmonary consultation is requested for evaluation and management due to these findings. Review of Systems: 14-point review of systems negative unless otherwise noted above. Past Medical History: COPD, hypertension, bronchitis. Past Surgical History: Tubal Ligation Medications: Reviewed. Allergies: No known drug allergies. Family History: No family history of premature CAD. No family history of lung disorders. Social History: Nonsmoker. No alcohol or illicit drug use. Family History: Arthritis G8 FATHER Diabetes mellitus G8 MOTHER Hypertension G8 MOTHER G8 FATHER Allergies: Coded Allergies: NO KNOWN ALLERGIES (Unverified , 04/28/15) Home Meds Reported Medications Paroxetine Hydrochloride (Paroxetine Hydrochloride) 20 Mg Tab, 1 TAB PO DAILY 05/29/24 Montelukast Sodium (MONTELUKAST SODIUM) 10 Mg Tab, 1 TAB PO DAILY 05/29/24 Empagliflozin (Jardiance) 10 Mg Tab, 1 TAB PO DAILY 05/29/24 Current Medications Current Medications Medications (Trade) Dose Ordered Sig/Jim Route PRN Reason Start Time Stop Time Status Last Admin Ceftriaxone Sodium 50 ml @ 100 mls/hr DAILY@09 IV 05/30/24 09:00 05/30/24 09:28 Azithromycin (Zithromax Tablet) 500 mg DAILY PO 05/30/24 10:00 05/29/24 10:20 DC Methylprednisolone Sodium Succinate (Solu Medrol) 40 mg DAILY IV 05/30/24 10:00 05/29/24 10:29 DC Zinc Sulfate 220 mg DAILY PO 05/30/24 10:00 05/30/24 09:28 Ascorbic Acid (Vitamin C Tablet) 500 mg BID PO 05/29/24 22:00 11/28/24 09:30 Multivitamins (Mvi Tab) 1 tab DAILY PO 05/30/24 10:00 05/30/24 09:29 Azithromycin (Zithromax Tablet) 250 mg DAILY PO 05/30/24 10:00 05/30/24 09:30 Losartan Potassium (Cozaar Tablet) 50 mg DAILY PO 05/30/24 10:00 05/30/24 17:20 DC 05/30/24 09:28 Methylprednisolone Sodium Succinate (Solu Medrol) 40 mg BID IV 05/30/24 22:00 Vancomycin HCl 0 ml @ 0 mls/hr UD IV 05/30/24 16:00 Vancomycin HCl 150 ml @ 150 mls/hr Q12H IV 05/31/24 04:00 Losartan Potassium (Cozaar Tablet) 100 mg DAILY PO 05/30/24 17:30 Vital Signs Vital Signs Date Time Temp Pulse Resp B/P (MAP) Pulse Ox O2 Delivery O2 Flow Rate FiO2 05/30/24 17:00 99.9 96 17 167/103 (124) 93 99.9 05/30/24 08:00 Nasal Cannula* 2 28 Physical Exam Gen.: Patient lying in bed in no apparent distress. On supplemental oxygen. Head: Normocephalic, atraumatic. Eyes: EOMI/PERRLA. Ears: Normal hearing. Normal anatomy. Neck/trachea: Trachea midline, supple. Nose: Normal external anatomy. Mouth: Moist mucous membranes. Chest: Decreased air entry bilaterally. No wheezing or rhonchi. Cardiovascular: Positive S1, positive S2. Regular rate and rhythm. Abdomen: Positive bowel sounds in all 4 quadrants. Soft, non-tender, non- distended. : Deferred. Rectal: Deferred. Skin: Warm, dry. Intact. Extremities: 2+ radial pulses bilaterally. No lower extremity edema. Neuro: Awake, alert, oriented x3. No gross motor or sensory deficits. Cranial nerves II through XII intact. Gait not assessed. Labs/Diagnostic Data Labs Test 05/30/24 14:58 05/30/24 09:30 05/30/24 06:35 05/29/24 09:36 Range/Units HIV (1&2) Antibody Negative Negative Influenza Type A Antigen Negative Negative Influenza Type B Antigen Negative Negative SARS-CoV-2 Antigen (Rapid) Negative NEGATIVE White Blood Count 16.2 H 4.4-10.8 10^3/uL Red Blood Count 4.66 4.0-5.20 10^6/uL Hemoglobin 12.7 12.2-16.2 g/dL Hematocrit 38.4 36.0-46.0 % Mean Corpuscular Volume 82.5 80.0-100.0 fL Mean Corpuscular Hemoglobin 27.2 L 28.0-32.0 pg Mean Corpuscular Hemoglobin Concent 33.0 32.0-36.0 g/dL Red Cell Distribution Width 14.1 11.8-14.3 % Platelet Count 138 L 140-450 10^3/uL Mean Platelet Volume 9.8 6.9-10.8 fL Neutrophils (%) (Auto) 84.6 H 37.0-80.0 % Lymphocytes (%) (Auto) 4.9 L 10.0-50.0 % Monocytes (%) (Auto) 10.4 0.0-12.0 % Eosinophils (%) (Auto) 0.0 0.0-7.0 % Basophils (%) (Auto) 0.1 0.0-2.0 % Neutrophils # (Auto) 13.7 H 1.6-8.6 10 ^3/uL Lymphocytes # (Auto) 0.8 0.4-5.4 10 ^3/uL Monocytes # (Auto) 1.7 H 0-1.3 10 ^3/uL Eosinophils # (Auto) 0 0-0.8 10 ^3/uL Basophils # (Auto) 0 0-0.2 10 ^3/uL Nucleated Red Blood Cells 0.0 % Sodium Level 136 136-145 mmol/L Potassium Level 3.3 L 3.5-5.1 mmol/L Chloride Level 103 98-107 mmol/L Carbon Dioxide Level 22 20-31 mmol/L Anion Gap 11 5-15 Blood Urea Nitrogen 13 9-23 mg/dL Creatinine 0.61 0.550-1.02 mg/dL Glomerular Filtration Rate Calc 96 >90 mL/min BUN/Creatinine Ratio 21.3 H 10.0-20.0 Serum Glucose 108 H 74-106 mg/dL Hemoglobin A1c 5.7 <5.7 % A1C Lactic Acid Level 1.2 0.4-2.0 mmol/L Calcium Level 9.1 8.7-10.4 mg/dL Phosphorus Level 2.3 L 2.4-5.1 mg/dL Magnesium Level 2.1 1.6-2.6 mg/dL Total Bilirubin 1.1 H 0.2-1.0 mg/dL Aspartate Amino Transferase (AST) 36 13-40 U/L Alanine Aminotransferase (ALT) 26 7-40 U/L Alkaline Phosphatase 101 46-116 U/L Total Protein 6.3 5.7-8.2 g/dL Albumin 3.4 3.2-4.8 g/dL Thyroid Stimulating Hormone (TSH) 0.91 0.55-4.78 uIU/mL Troponin I High Sensitivity 11 </=34 ng/L Test 05/29/24 07:03 Range/Units Differential Total Cells Counted 100.0 100 Neutrophils % (Manual) 73 37.0-80.0 Band Neutrophils % (Manual) 6 Lymphocytes % (Manual) 4 L 10.0-50.0 Monocytes % (Manual) 17 H 0-12 Eosinophils % (Manual) 0 0-7 Basophils % (Manual) 0 0.0-2.0 Metamyelocytes % (manual) 0 Myelocytes % (Manual) 0 Promyelocytes % (Manual) 0 Blast Cells % (Manual) 0 Reactive Lymphocytes 0 Platelet Estimate Decrea Large Platelets Few Erythrocyte Sedimentation Rate 25 H 0-20 mm/hr Prothrombin Time 11.4 9.3-11.8 sec Prothrombin Time INR 1.08 0.9-1.15 D-Dimer, Quantitative 0.97 H 0.0-0.49 mg/L FEU C-Reactive Protein High Sensitivity 6.56 H <1.0 mg/dL B-Type Natriuretic Peptide 101.24 0-100 pg/mL Lipase 30 12-53 U/L Microbiology Date/Time Source Procedure Growth Status 05/29/24 09:36 Blood Blood Culture - Preliminary NO GROWTH AFTER 24 HOURS OF INCUBATION. Resulted Assessment Impression: Acute hypoxic respiratory failure Hemoptysis Acute on chronic COPD exacerbation Pneumonia Sepsis Transaminitis Hypokalemia Hypertension Plan: Supplemental oxygen Titrate to keep O2 sats above 92%. Taper O2 as tolerated. CXR demonstrates multifocal airspace disease, [id number]-left. CTA demonstrated no e/o pulmonary embolism. Multilevel areas of lobular consolidation, moderate in size in the right middle lobe and posterior left lower lobe. Findings are compatible with multilobar pneumonia. Bronchodilators. Antibiotics Monitor renal function. Monitor electrolytes. Supplement as necessary. Monitor ins and outs. Potassium supplementation DVT prophylaxis. Prognosis: Poor given patient's multiple co-morbidities. Rest of plan per hospitalist and other consultants. Thank you TERRELL Parra, for allowing me to participate in this patient's care. Further recommendations will depend on the patient's clinical course. Please do not hesitate to contact me if you have any questions or concerns. This medical document was created using an electronic medical record system with [employer] dictation system. Although these documentations are being carefully reviewed, there may still be some phonetic and typographical changes. The errors are purely typographical, due to imperfection on the software program, and do not reflect any compromise in the patient's medical care. Plan discussed with: Patient, Other (RN, TERRELL Clark MD) HEIDI ALMANZA MD May 30, 2024 18:14
[2024-05-30] MEDS: methylPREDNISolone SOD SUCC 40 MG/ML VL IV SCH (22:15)
[2024-05-31] VITALS (19 sets, daily range): BP systolic 122–182; BP diastolic 60–100; PULSE 82–108; RESP 16–20; TEMP 97.6–98.5; O2SAT 93–100
[2024-05-31] MEDS: VANCOMYCIN 750mg/150ml 150 ML IV SCH (03:40)
[2024-05-31 06:51] LABS: Hematocrit 39.2 % (36.0-46.0); Hemoglobin 12.9 g/dL (12.2-16.2); Mean Corpuscular Hemoglobin 27.5 pg (28.0-32.0); Mean Corpuscular Volume 83.4 fL (80.0-100.0); Platelet Count (auto) 140 10^3/uL (140-450); Red Cell Distribution Width 14.2 % (11.8-14.3); White Blood Cell 11.9 10^3/uL (4.4-10.8)
[2024-05-31 06:57] LABS: Band Neutrophils % (manual) 0; Basophils % (manual) 0 (0.0-2.0); Blast Cells 0; Metamyelocytes % 0; Myelocytes % 0; Promyelocytes % 0; Reactive Lymphocytes 0
[2024-05-31 07:08] LABS: Alanine Aminotransferase 31 U/L (7-40); Albumin 3.4 g/dL (3.2-4.8); Alkaline Phosphatase 109 U/L (46-116); Anion Gap 12 (5-15); Aspartate Aminotransferase 47 U/L (13-40); BUN/Creatinine Ratio 23.5 (10.0-20.0); Bilirubin, Total 1.1 mg/dL (0.2-1.0); Blood Urea Nitrogen 12 mg/dL (9-23); Calcium 8.9 mg/dL (8.7-10.4); Carbon Dioxide 19 mmol/L (20-31); Chloride 105 mmol/L (98-107); Glucose 172 mg/dL (74-106); Potassium 4.1 mmol/L (3.5-5.1); Sodium 136 mmol/L (136-145); Total Protein 6.5 g/dL (5.7-8.2)
[2024-05-31 07:41] LABS: Eosinophils % (manual) 1 (0-7); Lymphocytes % (manual) 6 (10.0-50.0); Monocytes % (manual) 10 (0-12)
[2024-05-31 07:44] LABS: Platelet Estimate Decreased
[2024-05-31] MEDS: amLODIPine BESYLATE 5 MG TAB PO SCH (10:56)
--- NOTE | 2024-05-31 18:01 | DVHPNRES ---
Progress Note Date Seen: May 31, 2024 Resident Creating Document: GONZALO FRANCOIS RESIDENT Has the PT tested + for MRSA If YES, has PT been informed?: No Medical Necessity Reason Pt with a Central, PICC or Fol: No Subjective Review of Systems A 69 year old woman with past medical history of COPD and hypertension come to the ED for shortness of breath for about 2 or 3 months ago but exacerbates from 5 days also patient came with a cough with bloody sputum and mild fevers. Pt had previously history of smoking Objective vital signs Vital Sign Date Time Temp Pulse Resp B/P (MAP) Pulse Ox O2 Delivery O2 Flow Rate FiO2 05/31/24 17:00 98.3 92 19 122/89 (100) 95 98.3 05/31/24 13:55 Nasal Cannula* 3 32 Total Intake and Output 05/30/24 05/30/24 05/31/24 15:00 23:00 07:00 Intake Total 50 ml 1520 ml 1150 ml Balance 50 ml 1520 ml 1150 ml medications Current Medications Medications Dose Ordered Sig/Jim Route Start Time Stop Time Status Last Admin Dose Admin Ceftriaxone Sodium 50 ml @ 100 mls/hr DAILY@09 IV 05/30/24 09:00 05/31/24 09:00 100 MLS/HR Sodium Chloride 1,000 ml @ 60 mls/hr [id number] IV 05/29/24 10:30 05/31/24 12:48 60 MLS/HR Acetaminophen/ Hydrocodone Bitart 1 tab Q4HP PRN PO 05/29/24 10:30 Ondansetron HCl 4 mg Q4HP PRN IV 05/29/24 10:30 Zinc Sulfate 220 mg DAILY PO 05/30/24 10:00 05/31/24 10:55 220 MG Ascorbic Acid 500 mg BID PO 05/29/24 22:00 05/31/24 10:00 500 MG Multivitamins 1 tab DAILY PO 05/30/24 10:00 05/31/24 10:00 1 TAB Acetaminophen 650 mg Q6HP PRN PO 05/29/24 10:30 Hold Nitroglycerin 0.4 mg Q5MINP PRN SL 05/29/24 10:30 Azithromycin 250 mg DAILY PO 05/30/24 10:00 05/31/24 10:55 250 MG Albuterol 2.5 mg Q4HR NEB 05/29/24 14:00 05/31/24 13:55 2.5 MG Albuterol 2.5 mg Q2HPRN PRN NEB 05/29/24 10:30 Acetaminophen 500 mg Q4HPRN PRN PO 05/29/24 10:45 Methylprednisolone Sodium Succinate 40 mg BID IV 05/30/24 22:00 05/31/24 10:55 40 MG Vancomycin HCl 0 ml @ 0 mls/hr UD IV 05/30/24 16:00 Vancomycin HCl 150 ml @ 150 mls/hr Q12H IV 05/31/24 04:00 05/31/24 15:20 150 MLS/HR Losartan Potassium 100 mg DAILY PO 05/30/24 17:30 05/31/24 10:55 100 MG Amlodipine Besylate 5 mg DAILY PO 05/31/24 10:00 05/31/24 10:56 5 MG Examination GEN: Healthy appearing, well-developed, NAD. with o2 2 lt PSYCH: Good Judgment. AOx3. Normal memory, mood, and affect. HEENT -Head: normocephalic atraumatic, no facial trauma, neck is supple -Eyes: PERRL, EOMI. No discharge or redness; -Ears: External ears are normal. Normal TMs. -Nose: Normal nares. NECK: Supple, with no masses. CV: RRR, no m/r/g. LUNGS: minished sounds with expiration wheezing ABD: Soft, ND/NT. No evidence of fluid wave. No pulsatile masses on exam, rebound tenderness, Liu sign or pain over Mcburney's point. : N/A SKIN: Warm, well perfused. No skin rashes or abnormal lesions. MSK: No deformities or signs of scoliosis. Normal gait. EXT: No clubbing, cyanosis, or edema. NEURO: Ambulating with no limitations. Normal muscle strength and tone. No focal deficits laboratory and microbiology Laboratory Tests 05/31/24 06:08 Test 05/31/24 06:08 Range/Units Serum Glucose 172 H 74-106 mg/dL Microbiology Date/Time Source Procedure Growth Status 05/30/24 17:00 Sputum Gram Stain Pending Resulted 05/30/24 17:00 Sputum Respiratory Culture - Preliminary Resulted 05/30/24 09:30 Nose MRSA Screen - Final Complete 05/29/24 09:36 Blood Blood Culture - Preliminary NO GROWTH AFTER 48 HOURS OF INCUBATION. Resulted Problem List/Assessment/Plan Problem List/Assessment/Plan #Acute respiratory failure due to pneumonia and COPD exacerbation #Sepsis due to pneumonia gram+/- and bacteremia MRSA #Hemoptysis #Acute on chronic COPD exacerbation #chronic diastolic heart failure #Hypertensive heart disease #Multilobar pneumonia due to gram + most likely #Transaminitis #Hypokalemia #Hypertension #PE ruled out Angio ct scan: 1. There is no evidence of a pulmonary arterial filling defect to suggest pulmonary embolism. 2. There there are multilevel areas of lobular consolidation, moderate in size in the right middle lobe and posterior left lower lobe. Findings are compatible with multilobar pneumonia. Clinical correlation is recommended. Blood culture: may 29: MRSA Further work up: Pulmonology consulted for possible bronchoscopy Viral panel negative Pending respiratory cultures and quantiferon O2 2 lts IV AB: ceftriaxone, vancomycin and azythromycin Breathing treatments Methylpredinosone 40 mg IV BID Fluids 60 cc/h Losartan 100 mg PO Amlodipine 5 mg PO Case discussed with Dr Melton Time spent on care 23 min Plan discussed with: Patient, Other (rn) My Orders My Orders Orders - GONZALO FRANCOIS Procedure Category Date Status Time Amlodipine Tablet PHA 05/31/24 In Process (Norvasc Tablet) 10:00 Complete Blood Count LAB 06/01/24 Verified 04:00 Comprehensive LAB 06/01/24 Verified Metabolic Panel 04:00 Date of Service: May 31, 2024 Billing Provider: PAN MELTON MD Common Visit Codes: [id number] INP/OBS CARE(HIGH) GONZALO FRANCOIS May 31, 2024 18:01 PAN MELTON MD Jun 01, 2024 22:59
--- NOTE | 2024-05-31 21:59 | DVHPN2 ---
"Progress Note - Dictate Date Seen: May 31, 2024 Has the PT tested + for MRSA If YES, has PT been informed?: No Medical Necessity Reason Pt with a Central, PICC or Fol: No Subjective Patient seen and examined at bedside. Remains on supplemental oxygen Overnight events reviewed. vital signs Vital Sign Date Time Temp Pulse Resp B/P (MAP) Pulse Ox O2 Delivery O2 Flow Rate FiO2 05/31/24 19:02 89 18 99 05/31/24 18:54 Nasal Cannula 2.0 05/31/24 18:54 28 05/31/24 17:00 98.3 122/89 (100) 98.3 Total Intake and Output 05/30/24 05/30/24 05/31/24 15:00 23:00 07:00 Intake Total 50 ml 1520 ml 1150 ml Balance 50 ml 1520 ml 1150 ml medications Current Medications Medications Dose Ordered Sig/Jim Route Start Time Stop Time Status Last Admin Dose Admin Ceftriaxone Sodium 50 ml @ 100 mls/hr DAILY@09 IV 05/30/24 09:00 05/31/24 09:00 100 MLS/HR Sodium Chloride 1,000 ml @ 60 mls/hr [id number] IV 05/29/24 10:30 05/31/24 12:48 60 MLS/HR Acetaminophen/ Hydrocodone Bitart 1 tab Q4HP PRN PO 05/29/24 10:30 Ondansetron HCl 4 mg Q4HP PRN IV 05/29/24 10:30 Zinc Sulfate 220 mg DAILY PO 05/30/24 10:00 05/31/24 10:55 220 MG Ascorbic Acid 500 mg BID PO 05/29/24 22:00 05/31/24 10:00 500 MG Multivitamins 1 tab DAILY PO 05/30/24 10:00 05/31/24 10:00 1 TAB Acetaminophen 650 mg Q6HP PRN PO 05/29/24 10:30 Hold Nitroglycerin 0.4 mg Q5MINP PRN SL 05/29/24 10:30 Azithromycin 250 mg DAILY PO 05/30/24 10:00 05/31/24 10:55 250 MG Albuterol 2.5 mg Q4HR NEB 05/29/24 14:00 05/31/24 18:54 2.5 MG Albuterol 2.5 mg Q2HPRN PRN NEB 05/29/24 10:30 Acetaminophen 500 mg Q4HPRN PRN PO 05/29/24 10:45 Methylprednisolone Sodium Succinate 40 mg BID IV 05/30/24 22:00 05/31/24 10:55 40 MG Vancomycin HCl 0 ml @ 0 mls/hr UD IV 05/30/24 16:00 Vancomycin HCl 150 ml @ 150 mls/hr Q12H IV 05/31/24 04:00 05/31/24 15:20 150 MLS/HR Losartan Potassium 100 mg DAILY PO 05/30/24 17:30 05/31/24 10:55 100 MG Amlodipine Besylate 5 mg DAILY PO 05/31/24 10:00 05/31/24 10:56 5 MG objective Gen.: Patient lying in bed in no apparent distress. On supplemental oxygen. Head: Normocephalic, atraumatic. Eyes: EOMI/PERRLA. Ears: Normal hearing. Normal anatomy. Neck/trachea: Trachea midline, supple. Nose: Normal external anatomy. Mouth: Moist mucous membranes. Chest: Decreased air entry bilaterally. No wheezing or rhonchi. Cardiovascular: Positive S1, positive S2. Regular rate and rhythm. Abdomen: Positive bowel sounds in all 4 quadrants. Soft, non-tender, non- distended. : Deferred. Rectal: Deferred. Skin: Warm, dry. Intact. Extremities: 2+ radial pulses bilaterally. No lower extremity edema. Neuro: Awake, alert, oriented x3. No gross motor or sensory deficits. Cranial nerves II through XII intact. Gait not assessed. laboratory and microbiology Laboratory Tests 05/31/24 06:08 Test 05/31/24 06:08 Range/Units Serum Glucose 172 H 74-106 mg/dL Assessment/Plan Impression: Acute hypoxic respiratory failure Hemoptysis Acute on chronic COPD exacerbation Pneumonia d/t MRSA. Atelectasis Sepsis Transaminitis Hypokalemia Hypertension Hx of nicotine dependence (quit in 2009). Events: Remains on supplemental oxygen, 2 LPM NC Taper O2 as tolerated Continue antibiotics - vancomycin/ceftriaxone. Continue steroids Incentive spirometry Labs and imaging reviewed. Rest of plan as noted below. Plan: Supplemental oxygen Titrate to keep O2 sats above 92%. Taper O2 as tolerated. CXR demonstrates multifocal airspace disease, [id number]-left. CTA demonstrated no e/o pulmonary embolism. Multilevel areas of lobular consolidation, moderate in size in the right middle lobe and posterior left lower lobe. Findings are compatible with multilobar pneumonia. Bronchodilators. Antibiotics Monitor renal function. Monitor electrolytes. Supplement as necessary. Monitor ins and outs. Potassium supplementation DVT prophylaxis. Prognosis: Poor given patient's multiple co-morbidities. Rest of plan per hospitalist and other consultants. Thank you TERRELL Parra, for allowing me to participate in this patient's care. Further recommendations will depend on the patient's clinical course. Please do not hesitate to contact me if you have any questions or concerns. This medical document was created using an electronic medical record system with [employer] dictation system. Although these documentations are being carefully reviewed, there may still be some phonetic and typographical changes. The errors are purely typographical, due to imperfection on the software program, and do not reflect any compromise in the patient's medical care. Plan discussed with: Patient, Other (RN) HEIDI ALMANZA MD May 31, 2024 21:59"
[2024-06-01] VITALS (20 sets, daily range): BP systolic 140–194; BP diastolic 62–90; PULSE 78–99; RESP 16–21; TEMP 97.4–98.7; O2SAT 94–100
[2024-06-01 04:59] LABS: Hematocrit 38.8 % (36.0-46.0); Mean Corpuscular Hemoglobin 27.6 pg (28.0-32.0); Mean Corpuscular Hgb Conc. 33.4 g/dL (32.0-36.0); Mean Corpuscular Volume 82.6 fL (80.0-100.0); Platelet Count (auto) 137 10^3/uL (140-450)
[2024-06-01 05:04] LABS: Basophils % (manual) 0 (0.0-2.0); Blast Cells 0; Eosinophils % (manual) 0 (0-7); Metamyelocytes % 0; Myelocytes % 0; Promyelocytes % 0; Reactive Lymphocytes 0
[2024-06-01 05:15] LABS: Alanine Aminotransferase 36 U/L (7-40); Albumin 3.4 g/dL (3.2-4.8); Alkaline Phosphatase 110 U/L (46-116); Anion Gap 12 (5-15); Blood Urea Nitrogen 14 mg/dL (9-23); Chloride 106 mmol/L (98-107); Sodium 137 mmol/L (136-145)
[2024-06-01 05:16] LABS: Total Protein 6.7 g/dL (5.7-8.2)
[2024-06-01 05:18] LABS: Aspartate Aminotransferase 43 U/L (13-40); Carbon Dioxide 19 mmol/L (20-31); Glucose 223 mg/dL (74-106)
[2024-06-01 06:52] LABS: Band Neutrophils % (manual) 4; Giant Platelets Few; Lymphocytes % (manual) 10 (10.0-50.0); Monocytes % (manual) 7 (0-12); Platelet Estimate Decreased
--- NOTE | 2024-06-01 08:58 | DVHPNRES ---
Progress Note Date Seen: Jun 01, 2024 Resident Creating Document: GONZALO FRANCOIS RESIDENT Has the PT tested + for MRSA If YES, has PT been informed?: No Medical Necessity Reason Pt with a Central, PICC or Fol: No Subjective Review of Systems A 69 year old woman with past medical history of COPD and hypertension come to the ED for shortness of breath for about 2 or 3 months ago but exacerbates from 5 days also patient came with a cough with bloody sputum and mild fevers. Pt had previously history of smoking Objective vital signs Vital Sign Date Time Temp Pulse Resp B/P (MAP) Pulse Ox O2 Delivery O2 Flow Rate FiO2 06/01/24 08:38 97.4 99 16 194/83 (120) 96 97.4 06/01/24 06:43 Nasal Cannula* 2 28 Total Intake and Output 05/31/24 05/31/24 06/01/24 15:00 23:00 07:00 Intake Total 50 ml 1350 ml 150 ml Output Total 780 ml 0 ml Balance 50 ml 570 ml 150 ml medications Current Medications Medications Dose Ordered Sig/Jim Route Start Time Stop Time Status Last Admin Dose Admin Ceftriaxone Sodium 50 ml @ 100 mls/hr DAILY@09 IV 05/30/24 09:00 05/31/24 09:00 100 MLS/HR Sodium Chloride 1,000 ml @ 60 mls/hr [id number] IV 05/29/24 10:30 06/01/24 05:10 60 MLS/HR Acetaminophen/ Hydrocodone Bitart 1 tab Q4HP PRN PO 05/29/24 10:30 Ondansetron HCl 4 mg Q4HP PRN IV 05/29/24 10:30 Zinc Sulfate 220 mg DAILY PO 05/30/24 10:00 05/31/24 10:55 220 MG Ascorbic Acid 500 mg BID PO 05/29/24 22:00 05/31/24 22:05 500 MG Multivitamins 1 tab DAILY PO 05/30/24 10:00 05/31/24 10:00 1 TAB Acetaminophen 650 mg Q6HP PRN PO 05/29/24 10:30 Hold Nitroglycerin 0.4 mg Q5MINP PRN SL 05/29/24 10:30 Azithromycin 250 mg DAILY PO 05/30/24 10:00 05/31/24 10:55 250 MG Albuterol 2.5 mg Q4HR NEB 05/29/24 14:00 06/01/24 06:43 2.5 MG Albuterol 2.5 mg Q2HPRN PRN NEB 05/29/24 10:30 Acetaminophen 500 mg Q4HPRN PRN PO 05/29/24 10:45 Methylprednisolone Sodium Succinate 40 mg BID IV 05/30/24 22:00 05/31/24 22:06 40 MG Vancomycin HCl 0 ml @ 0 mls/hr UD IV 05/30/24 16:00 Vancomycin HCl 150 ml @ 150 mls/hr Q12H IV 05/31/24 04:00 06/01/24 03:50 150 MLS/HR Losartan Potassium 100 mg DAILY PO 05/30/24 17:30 05/31/24 10:55 100 MG Hydralazine HCl 10 mg Q6HP PRN IV 06/01/24 08:30 Amlodipine Besylate 10 mg DAILY PO 06/01/24 08:30 Examination GEN: Healthy appearing, well-developed, NAD. with o2 2 lt PSYCH: Good Judgment. AOx3. Normal memory, mood, and affect. HEENT -Head: normocephalic atraumatic, no facial trauma, neck is supple -Eyes: PERRL, EOMI. No discharge or redness; -Ears: External ears are normal. Normal TMs. -Nose: Normal nares. NECK: Supple, with no masses. CV: RRR, no m/r/g. LUNGS: minished sounds with expiration wheezing ABD: Soft, ND/NT. No evidence of fluid wave. No pulsatile masses on exam, rebound tenderness, Liu sign or pain over Mcburney's point. : N/A SKIN: Warm, well perfused. No skin rashes or abnormal lesions. MSK: No deformities or signs of scoliosis. Normal gait. EXT: No clubbing, cyanosis, or edema. NEURO: Ambulating with no limitations. Normal muscle strength and tone. No focal deficits laboratory and microbiology Laboratory Tests 06/01/24 04:46 Test 06/01/24 04:46 Range/Units Serum Glucose 223 H 74-106 mg/dL Microbiology Date/Time Source Procedure Growth Status 05/30/24 17:00 Sputum Gram Stain Pending Resulted 05/30/24 17:00 Sputum Respiratory Culture - Preliminary Resulted 05/30/24 09:30 Nose MRSA Screen - Final Complete 05/29/24 09:36 Blood Blood Culture - Preliminary NO GROWTH AFTER 48 HOURS OF INCUBATION. Resulted Problem List/Assessment/Plan Problem List/Assessment/Plan #Acute respiratory failure due to pneumonia and COPD exacerbation #Sepsis due to pneumonia gram+/- and bacteremia MRSA #Hemoptysis #Acute on chronic COPD exacerbation #chronic diastolic heart failure #Hypertensive heart disease #Multilobar pneumonia due to gram + most likely #Transaminitis #Hypokalemia #Hypertension #PE ruled out Angio ct scan: 1. There is no evidence of a pulmonary arterial filling defect to suggest pulmonary embolism. 2. There there are multilevel areas of lobular consolidation, moderate in size in the right middle lobe and posterior left lower lobe. Findings are compatible with multilobar pneumonia. Clinical correlation is recommended. Blood culture: may 29: MRSA Further work up: Pulmonology consulted for possible bronchoscopy Viral panel negative Pending respiratory cultures prelim staph and quantiferon O2 2 lts IV AB: ceftriaxone, vancomycin and azythromycin Breathing treatments Methylpredinosone 40 mg IV BID Stop Fluids 60 cc/h Losartan 100 mg PO Amlodipine 10 mg PO Hydralazine PRN Case discussed with Dr Herman Time spent on care 23 min Plan discussed with: Patient, Other (rn) My Orders My Orders Orders - GONZALO FRANCOIS Procedure Category Date Status Time Hydralazine Injection PHA 06/01/24 In Process (Apresoline Inject 08:30 Amlodipine Tablet PHA 06/01/24 In Process (Norvasc Tablet) 08:30 Date of Service: Jun 01, 2024 Billing Provider: ASHLEY HERMAN MD Common Visit Codes: [id number] INP/OBS CARE(HIGH) GONZALO FRANCOIS Jun 01, 2024 08:58 ASHLEY HERMAN MD Jun 01, 2024 21:49
[2024-06-01] MEDS: amLODIPine BESYLATE 5 MG TAB PO SCH (09:06)
[2024-06-01] MEDS: hydrALAZINE HCL 20 MG/ML VL IV PRN (12:41)
[2024-06-01] MEDS: cloNIDine HCL 0.1 MG TAB PO PRN (17:23)
--- NOTE | 2024-06-01 23:05 | DVHPN2 ---
Progress Note - Dictate Date Seen: Jun 01, 2024 Has the PT tested + for MRSA If YES, has PT been informed?: No Medical Necessity Reason Pt with a Central, PICC or Fol: No Subjective Patient seen and examined at bedside. Remains on supplemental oxygen Overnight events reviewed. vital signs Vital Sign Date Time Temp Pulse Resp B/P (MAP) Pulse Ox O2 Delivery O2 Flow Rate FiO2 06/01/24 22:47 81 18 100 06/01/24 22:39 Nasal Cannula* 1 06/01/24 18:32 161/64 (96) 06/01/24 17:00 98.3 98.3 Total Intake and Output 05/31/24 05/31/24 06/01/24 15:00 23:00 07:00 Intake Total 50 ml 1350 ml 150 ml Output Total 780 ml 0 ml Balance 50 ml 570 ml 150 ml medications Current Medications Medications Dose Ordered Sig/Jim Route Start Time Stop Time Status Last Admin Dose Admin Ceftriaxone Sodium 50 ml @ 100 mls/hr DAILY@09 IV 05/30/24 09:00 06/01/24 12:31 100 MLS/HR Acetaminophen/ Hydrocodone Bitart 1 tab Q4HP PRN PO 05/29/24 10:30 Ondansetron HCl 4 mg Q4HP PRN IV 05/29/24 10:30 Zinc Sulfate 220 mg DAILY PO 05/30/24 10:00 06/01/24 09:03 220 MG Ascorbic Acid 500 mg BID PO 05/29/24 22:00 06/01/24 21:52 500 MG Multivitamins 1 tab DAILY PO 05/30/24 10:00 06/01/24 09:03 1 TAB Acetaminophen 650 mg Q6HP PRN PO 05/29/24 10:30 Hold Nitroglycerin 0.4 mg Q5MINP PRN SL 05/29/24 10:30 Azithromycin 250 mg DAILY PO 05/30/24 10:00 06/01/24 09:03 250 MG Albuterol 2.5 mg Q4HR NEB 05/29/24 14:00 06/01/24 22:39 2.5 MG Albuterol 2.5 mg Q2HPRN PRN NEB 05/29/24 10:30 Acetaminophen 500 mg Q4HPRN PRN PO 05/29/24 10:45 Methylprednisolone Sodium Succinate 40 mg BID IV 05/30/24 22:00 06/01/24 21:52 40 MG Vancomycin HCl 0 ml @ 0 mls/hr UD IV 05/30/24 16:00 Vancomycin HCl 150 ml @ 150 mls/hr Q12H IV 05/31/24 04:00 06/01/24 16:35 150 MLS/HR Losartan Potassium 100 mg DAILY PO 05/30/24 17:30 06/01/24 09:05 100 MG Hydralazine HCl 10 mg Q6HP PRN IV 06/01/24 08:30 06/01/24 12:41 10 MG Amlodipine Besylate 10 mg DAILY PO 06/01/24 08:30 06/01/24 09:06 10 MG Clonidine HCl 0.1 mg Q8HPRN PRN PO 06/01/24 17:15 objective Gen.: Patient lying in bed in no apparent distress. On supplemental oxygen. Head: Normocephalic, atraumatic. Eyes: EOMI/PERRLA. Ears: Normal hearing. Normal anatomy. Neck/trachea: Trachea midline, supple. Nose: Normal external anatomy. Mouth: Moist mucous membranes. Chest: Decreased air entry bilaterally. No wheezing or rhonchi. Cardiovascular: Positive S1, positive S2. Regular rate and rhythm. Abdomen: Positive bowel sounds in all 4 quadrants. Soft, non-tender, non- distended. : Deferred. Rectal: Deferred. Skin: Warm, dry. Intact. Extremities: 2+ radial pulses bilaterally. No lower extremity edema. Neuro: Awake, alert, oriented x3. No gross motor or sensory deficits. Cranial nerves II through XII intact. Gait not assessed. laboratory and microbiology Laboratory Tests 06/01/24 04:46 Test 06/01/24 04:46 Range/Units Serum Glucose 223 H 74-106 mg/dL Assessment/Plan Impression: Acute hypoxic respiratory failure Hemoptysis Acute on chronic COPD exacerbation Pneumonia d/t MRSA. Atelectasis Sepsis Transaminitis Hypokalemia Hypertension Hx of nicotine dependence (quit in 2009). Events: Remains on supplemental oxygen, 1 LPM NC Taper O2 as tolerated Incentive spirometry Continue antibiotics - vancomycin/ceftriaxone. Continue IV steroids Continue bronchodilators Vitamin supplementation WBC is WNL. Labs and imaging reviewed. Rest of plan as noted below. Plan: Supplemental oxygen Titrate to keep O2 sats above 92%. Taper O2 as tolerated. CXR demonstrates multifocal airspace disease, [id number]-left. CTA demonstrated no e/o pulmonary embolism. Multilevel areas of lobular consolidation, moderate in size in the right middle lobe and posterior left lower lobe. Findings are compatible with multilobar pneumonia. Bronchodilators. Antibiotics Monitor renal function. Monitor electrolytes. Supplement as necessary. Monitor ins and outs. Potassium supplementation DVT prophylaxis. Prognosis: Poor given patient's multiple co-morbidities. Rest of plan per hospitalist and other consultants. Thank you TERRELL Parra, for allowing me to participate in this patient's care. Further recommendations will depend on the patient's clinical course. Please do not hesitate to contact me if you have any questions or concerns. This medical document was created using an electronic medical record system with [employer] dictation system. Although these documentations are being carefully reviewed, there may still be some phonetic and typographical changes. The errors are purely typographical, due to imperfection on the software program, and do not reflect any compromise in the patient's medical care. Plan discussed with: Patient, Other (RN Carmen) HEIDI ALMANZA MD Jun 01, 2024 23:05
[2024-06-02] VITALS (17 sets, daily range): BP systolic 145–166; BP diastolic 70–85; PULSE 80–114; RESP 14–18; TEMP 98–98.7; O2SAT 93–100
[2024-06-02 07:02] LABS: Hematocrit 36.9 % (36.0-46.0); Hemoglobin 12.4 g/dL (12.2-16.2); Mean Corpuscular Hemoglobin 27.7 pg (28.0-32.0); Mean Corpuscular Hgb Conc. 33.6 g/dL (32.0-36.0); Mean Corpuscular Volume 82.5 fL (80.0-100.0); Platelet Count (auto) 153 10^3/uL (140-450); Red Blood Cells 4.47 10^6/uL (4.0-5.20); Red Cell Distribution Width 14.2 % (11.8-14.3); White Blood Cell 7.3 10^3/uL (4.4-10.8)
[2024-06-02 07:18] LABS: Basophils % (manual) 0 (0.0-2.0); Blast Cells 0; Eosinophils % (manual) 0 (0-7); Metamyelocytes % 0; Promyelocytes % 0
[2024-06-02 07:19] LABS: Alkaline Phosphatase 109 U/L (46-116); Anion Gap 10 (5-15); BUN/Creatinine Ratio 30.5 (10.0-20.0); Blood Urea Nitrogen 18 mg/dL (9-23); Calcium 8.8 mg/dL (8.7-10.4); Carbon Dioxide 21 mmol/L (20-31); Chloride 103 mmol/L (98-107); Potassium 4.1 mmol/L (3.5-5.1)
[2024-06-02 07:20] LABS: Bilirubin, Total 0.9 mg/dL (0.2-1.0); Total Protein 6.3 g/dL (5.7-8.2)
[2024-06-02 07:37] LABS: Alanine Aminotransferase 52 U/L (7-40); Albumin 3.1 g/dL (3.2-4.8); Aspartate Aminotransferase 42 U/L (13-40); Glucose 302 mg/dL (74-106); Sodium 134 mmol/L (136-145)
[2024-06-02 09:12] LABS: Band Neutrophils % (manual) 20; Lymphocytes % (manual) 4 (10.0-50.0); Monocytes % (manual) 6 (0-12); Myelocytes % 1; Reactive Lymphocytes 1
[2024-06-02 09:13] LABS: Platelet Estimate Adequate; RBC Morphology Normal
[2024-06-02] MEDS: methylPREDNISolone SOD SUCC 40 MG/ML VL IV SCH ×2 (10:00→21:24)
[2024-06-02] MEDS: VANCOMYCIN 1GM/250ML KIT 200 ML IV SCH (16:40)
--- NOTE | 2024-06-02 19:56 | DVHPNRES ---
Progress Note Date Seen: Jun 02, 2024 Resident Creating Document: WILLOW BURKS RESIDENT Has the PT tested + for MRSA If YES, has PT been informed?: No Medical Necessity Reason Pt with a Central, PICC or Fol: No Subjective Review of Systems Bhavna Cosme is a 69 year old female patient who presents to the ED with complaint of progressive dyspnea from functional class II to functional class IV in the past couple of months but got progressively worse in the last five days before her admission, associated with hemoptysis, chills and fever. Denies palpitation, syncope, chest pain, nausea, vomiting, diarrhea, constipation, unintentional weight loss, sick contacts, recent travel and motor or sensory deficits. Past medical history: Hypertension, COPD/asthma, depression Surgical history: Denies Family history: Noncontributory Social history: Lives in home. Ex-smoker (20 pack-year history of smoking). Denies current tobacco, alcohol and other drug abuse Allergies: Denies Home medication: Paroxetine, empagliflozin, montelukast Patient seen and examined at bedside. Currently feels better, has not presented anymore episode of hemoptysis since admission. Objective vital signs Vital Sign Date Time Temp Pulse Resp B/P (MAP) Pulse Ox O2 Delivery O2 Flow Rate FiO2 06/02/24 18:45 98 16 100 06/02/24 18:37 Nasal Cannula 1.0 06/02/24 18:37 24 06/02/24 17:00 98.7 154/82 (106) 98.7 Total Intake and Output 06/01/24 06/01/24 06/02/24 15:00 23:00 07:00 Intake Total 50 ml 950 ml 275 ml Balance 50 ml 950 ml 275 ml medications Current Medications Medications Dose Ordered Sig/Jim Route Start Time Stop Time Status Last Admin Dose Admin Ceftriaxone Sodium 50 ml @ 100 mls/hr DAILY@09 IV 05/30/24 09:00 06/02/24 09:55 100 MLS/HR Acetaminophen/ Hydrocodone Bitart 1 tab Q4HP PRN PO 05/29/24 10:30 Ondansetron HCl 4 mg Q4HP PRN IV 05/29/24 10:30 Zinc Sulfate 220 mg DAILY PO 05/30/24 10:00 06/02/24 09:55 220 MG Ascorbic Acid 500 mg BID PO 05/29/24 22:00 06/02/24 09:56 500 MG Multivitamins 1 tab DAILY PO 05/30/24 10:00 06/02/24 09:55 1 TAB Acetaminophen 650 mg Q6HP PRN PO 05/29/24 10:30 Hold Nitroglycerin 0.4 mg Q5MINP PRN SL 05/29/24 10:30 Azithromycin 250 mg DAILY PO 05/30/24 10:00 06/02/24 09:56 250 MG Albuterol 2.5 mg Q4HR NEB 05/29/24 14:00 06/02/24 18:36 2.5 MG Albuterol 2.5 mg Q2HPRN PRN NEB 05/29/24 10:30 Acetaminophen 500 mg Q4HPRN PRN PO 05/29/24 10:45 Vancomycin HCl 0 ml @ 0 mls/hr UD IV 05/30/24 16:00 Losartan Potassium 100 mg DAILY PO 05/30/24 17:30 06/02/24 09:55 100 MG Hydralazine HCl 10 mg Q6HP PRN IV 06/01/24 08:30 06/02/24 13:23 10 MG Amlodipine Besylate 10 mg DAILY PO 06/01/24 08:30 06/02/24 09:55 10 MG Clonidine HCl 0.1 mg Q8HPRN PRN PO 06/01/24 17:15 Methylprednisolone Sodium Succinate 40 mg DAILY IV 06/02/24 10:00 06/02/24 10:00 40 MG Vancomycin HCl 200 ml @ 200 mls/hr Q12H IV 06/02/24 17:00 06/02/24 16:40 200 MLS/HR Examination Patient lying in bed, in no acute distress General: Lucid, afebrile, mucosae are moist Cardiovascular: Normal S1 and S2. No murmurs, gallops or rubs Respiratory: Normal ventilation mechanics. Scares generalized wheezing. Rhonchus predominantly on right base, rest of lung auscultation is clear. Currently on nasal cannula 2 L/min Abdomen: Soft, nontender, no organomegaly, normal bowel sounds MSK/skin: Mobilizes 4 limbs. Skin is dry and warm Neurological: Oriented in 3 spheres. No motor no sensitive deficits. Pupils are isocoric and reactive laboratory and microbiology Laboratory Tests 06/02/24 06:01 Test 06/02/24 06:01 Range/Units Serum Glucose 302 H 74-106 mg/dL Microbiology Date/Time Source Procedure Growth Status 05/30/24 17:00 Sputum Gram Stain - Final Complete 05/30/24 17:00 Respiratory Culture - Final Methicillin Resistant S.aureus Complete 05/30/24 09:30 Nose MRSA Screen - Final Complete 05/29/24 09:36 Blood Blood Culture - Preliminary NO GROWTH AFTER 72 HOURS OF INCUBATION. Resulted Problem List/Assessment/Plan Problem List/Assessment/Plan Acute respiratory failure due to pneumonia and COPD exacerbation Currently on nasal cannula at 2 liters/minute Sepsis due to pneumonia gram+/- and bacteremia MRSA Currently on adjusted IV antibiotic (vancomycin, continue with ceftriaxone and azithromycin at this point) Sputum and blood culture positive for MRSA Multilobar pneumonia due MRSA Completed chest CT and Angio CT: Multilevel areas of lobular consolidation, moderate in size in the right middle lobe and posterior left lower lobe. Findings are compatible with multilobar pneumonia. No pulmonary embolus Pulmonology on board, we will evaluate requirement of bronchoscopy. 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 Acute on chronic COPD exacerbation Currently on oxygen therapy, bronchodilators and IV steroids (methylprednisolone 40 mg IV b.i.d.) Acute on chronic Chronic diastolic heart failure (HFpEF, LVEF 55%) Patient required one dose of IV diuretics Completed echocardiogram: LVEF 55%, grade 1 diastolic dysfunction, RVSP 26 mmHg Hypertension Optimize medical therapy (losartan, amlodipine, hydralazine) Transaminitis Monitor Avoid hepatotoxic medication Hypokalemia Replenish Ruled out pulmonary embolism Completed angio CT which ruled out PE Goals of care discussed with patient for over 18 minutes: Full code status Case discussed with Dr Gannon, patient and nurses: Continue with IV antibiotic (vancomycin, ceftriaxone and azithromycin), IV steroids, bronchodilators and oxygen therapy. Pulmonology on board, evaluating need for bronchoscopy. Plan discussed with: Patient, Other (Nurses) My Orders My Orders Orders - WILLOW BURKS RESIDENT Procedure Category Date Status Time Methylprednisolone PHA 06/02/24 In Process Sod Succ (Solu Medrol 10:00 Methylprednisolone PHA 06/02/24 Transmitted Sod Succ (Solu Medrol 22:00 Dietary Evaluation Review Comments: 1. Consider adding CCHO 60g diet for high BG Expected Outcomes/Goals: 1. Pt will consume >75% of estimated needs within 3-5 days Date of Service: Jun 02, 2024 Billing Provider: ASHLEY GANNON MD Common Visit Codes: [id number] INP/OBS CARE(HIGH) WILLOW BURKS RESIDENT Jun 02, 2024 19:56 ASHLEY GANNON MD Jun 02, 2024 23:35
--- NOTE | 2024-06-02 23:38 | DVHPN2 ---
Progress Note - Dictate Date Seen: Jun 02, 2024 Has the PT tested + for MRSA If YES, has PT been informed?: No Medical Necessity Reason Pt with a Central, PICC or Fol: No Subjective Patient seen and examined at bedside. Remains on supplemental oxygen Overnight events reviewed. vital signs Vital Sign Date Time Temp Pulse Resp B/P (MAP) Pulse Ox O2 Delivery O2 Flow Rate FiO2 06/02/24 22:28 97 Nasal Cannula* 1 06/02/24 21:00 98.6 98 18 146/75 (98) 98.6 Total Intake and Output 06/01/24 06/01/24 06/02/24 15:00 23:00 07:00 Intake Total 50 ml 950 ml 275 ml Balance 50 ml 950 ml 275 ml medications Current Medications Medications Dose Ordered Sig/Jim Route Start Time Stop Time Status Last Admin Dose Admin Ceftriaxone Sodium 50 ml @ 100 mls/hr DAILY@09 IV 05/30/24 09:00 06/02/24 09:55 100 MLS/HR Acetaminophen/ Hydrocodone Bitart 1 tab Q4HP PRN PO 05/29/24 10:30 Ondansetron HCl 4 mg Q4HP PRN IV 05/29/24 10:30 Zinc Sulfate 220 mg DAILY PO 05/30/24 10:00 06/02/24 09:55 220 MG Ascorbic Acid 500 mg BID PO 05/29/24 22:00 06/02/24 21:23 500 MG Multivitamins 1 tab DAILY PO 05/30/24 10:00 06/02/24 09:55 1 TAB Acetaminophen 650 mg Q6HP PRN PO 05/29/24 10:30 Hold Nitroglycerin 0.4 mg Q5MINP PRN SL 05/29/24 10:30 Azithromycin 250 mg DAILY PO 05/30/24 10:00 06/02/24 09:56 250 MG Albuterol 2.5 mg Q4HR NEB 05/29/24 14:00 06/02/24 18:36 2.5 MG Albuterol 2.5 mg Q2HPRN PRN NEB 05/29/24 10:30 Acetaminophen 500 mg Q4HPRN PRN PO 05/29/24 10:45 Vancomycin HCl 0 ml @ 0 mls/hr UD IV 05/30/24 16:00 Losartan Potassium 100 mg DAILY PO 05/30/24 17:30 06/02/24 09:55 100 MG Hydralazine HCl 10 mg Q6HP PRN IV 06/01/24 08:30 06/02/24 13:23 10 MG Amlodipine Besylate 10 mg DAILY PO 06/01/24 08:30 06/02/24 09:55 10 MG Clonidine HCl 0.1 mg Q8HPRN PRN PO 06/01/24 17:15 Vancomycin HCl 200 ml @ 200 mls/hr Q12H IV 06/02/24 17:00 06/02/24 16:40 200 MLS/HR Methylprednisolone Sodium Succinate 40 mg BID IV 06/02/24 22:00 06/02/24 21:24 40 MG objective Gen.: Patient lying in bed in no apparent distress. On supplemental oxygen. Head: Normocephalic, atraumatic. Eyes: EOMI/PERRLA. Ears: Normal hearing. Normal anatomy. Neck/trachea: Trachea midline, supple. Nose: Normal external anatomy. Mouth: Moist mucous membranes. Chest: Decreased air entry bilaterally. No wheezing or rhonchi. Cardiovascular: Positive S1, positive S2. Regular rate and rhythm. Abdomen: Positive bowel sounds in all 4 quadrants. Soft, non-tender, non- distended. : Deferred. Rectal: Deferred. Skin: Warm, dry. Intact. Extremities: 2+ radial pulses bilaterally. No lower extremity edema. Neuro: Awake, alert, oriented x3. No gross motor or sensory deficits. Cranial nerves II through XII intact. Gait not assessed. laboratory and microbiology Laboratory Tests 06/02/24 06:01 Test 06/02/24 06:01 Range/Units Serum Glucose 302 H 74-106 mg/dL Assessment/Plan Impression: Acute hypoxic respiratory failure Hemoptysis Acute on chronic COPD exacerbation Pneumonia d/t MRSA. Atelectasis Sepsis Transaminitis Hypokalemia Hypertension Hx of nicotine dependence (quit in 2009). Events: Remains on supplemental oxygen, 1 LPM NC Taper O2 as tolerated FIO2 requirements improved. Incentive spirometry Continue antibiotics - vancomycin/ceftriaxone. Recommend to complete antibiotic course. Recommend repeat CT chest without contrast in 6-8 weeks. Awaiting Quantiferon Gold test. Less likely TB, but will consider bronchoscopy depending on Quantiferon GOLD test. Complete steroid course. Continue bronchodilators Vitamin supplementation From pulmonary standpoint if Quantiferon Gold test is negative, patient can be discharged. Labs and imaging reviewed. Rest of plan as noted below. Plan: Supplemental oxygen Titrate to keep O2 sats above 92%. Taper O2 as tolerated. CXR demonstrates multifocal airspace disease, [id number]-left. CTA demonstrated no e/o pulmonary embolism. Multilevel areas of lobular consolidation, moderate in size in the right middle lobe and posterior left lower lobe. Findings are compatible with multilobar pneumonia. Bronchodilators. Antibiotics Monitor renal function. Monitor electrolytes. Supplement as necessary. Monitor ins and outs. Potassium supplementation DVT prophylaxis. Prognosis: Poor given patient's multiple co-morbidities. Rest of plan per hospitalist and other consultants. Thank you TERRELL Parra, for allowing me to participate in this patient's care. Further recommendations will depend on the patient's clinical course. Please do not hesitate to contact me if you have any questions or concerns. This medical document was created using an electronic medical record system with [employer] dictation system. Although these documentations are being carefully reviewed, there may still be some phonetic and typographical changes. The errors are purely typographical, due to imperfection on the software program, and do not reflect any compromise in the patient's medical care. Dietary Evaluation Review Comments: 1. Consider adding CCHO 60g diet for high BG Expected Outcomes/Goals: 1. Pt will consume >75% of estimated needs within 3-5 days Plan discussed with: Other (RN, MD) HEIDI ALMANZA MD Jun 02, 2024 23:38
[2024-06-03] VITALS (17 sets, daily range): BP systolic 140–184; BP diastolic 62–95; PULSE 72–100; RESP 16–20; TEMP 97.7–98.5; O2SAT 94–100
[2024-06-03] MEDS: cloNIDine HCL 0.1 MG TAB PO PRN (05:42)
[2024-06-03 06:36] LABS: Hematocrit 39.2 % (36.0-46.0); Hemoglobin 13.2 g/dL (12.2-16.2); Mean Corpuscular Hemoglobin 27.4 pg (28.0-32.0); Mean Corpuscular Hgb Conc. 33.6 g/dL (32.0-36.0); Mean Corpuscular Volume 81.4 fL (80.0-100.0); Platelet Count (auto) 200 10^3/uL (140-450); Red Blood Cells 4.81 10^6/uL (4.0-5.20); Red Cell Distribution Width 14.1 % (11.8-14.3); White Blood Cell 10.9 10^3/uL (4.4-10.8)
[2024-06-03 06:54] LABS: Basophils % (manual) 0 (0.0-2.0); Blast Cells 0; Eosinophils % (manual) 0 (0-7); Metamyelocytes % 0; Myelocytes % 0; Promyelocytes % 0; Reactive Lymphocytes 0
[2024-06-03 07:00] LABS: Albumin 3.2 g/dL (3.2-4.8); Alkaline Phosphatase 114 U/L (46-116); Anion Gap 8 (5-15); BUN/Creatinine Ratio 27.5 (10.0-20.0); Blood Urea Nitrogen 19 mg/dL (9-23); Calcium 9.1 mg/dL (8.7-10.4); Carbon Dioxide 23 mmol/L (20-31); Chloride 102 mmol/L (98-107); Potassium 4.3 mmol/L (3.5-5.1)
[2024-06-03 07:01] LABS: Bilirubin, Total 0.9 mg/dL (0.2-1.0); Phosphorus 3.3 mg/dL (2.4-5.1); Total Protein 6.4 g/dL (5.7-8.2)
[2024-06-03 07:02] LABS: Alanine Aminotransferase 61 U/L (7-40); Aspartate Aminotransferase 42 U/L (13-40); Glucose 335 mg/dL (74-106); Sodium 133 mmol/L (136-145)
[2024-06-03] MEDS: methylPREDNISolone SOD SUCC 40 MG/ML VL IV SCH (09:31)
[2024-06-03 09:43] LABS: Band Neutrophils % (manual) 5; Lymphocytes % (manual) 6 (10.0-50.0); Monocytes % (manual) 4 (0-12); Platelet Estimate Adequate
--- NOTE | 2024-06-03 14:16 | DVHPNRES ---
Progress Note Date Seen: Jun 03, 2024 Resident Creating Document: GONZALO FRANCOIS RESIDENT Has the PT tested + for MRSA If YES, has PT been informed?: No Medical Necessity Reason Pt with a Central, PICC or Fol: No Subjective Review of Systems A 69 year old woman with past medical history of TB, COPD and hypertension come to the ED for shortness of breath for about 2 or 3 months ago but exacerbates from 5 days also patient came with a cough with bloody sputum and mild fevers. Pt had previously history of smoking Objective vital signs Vital Sign Date Time Temp Pulse Resp B/P (MAP) Pulse Ox O2 Delivery O2 Flow Rate FiO2 06/03/24 13:54 88 18 96 06/03/24 13:48 Room Air 0.0 06/03/24 13:48 21 06/03/24 13:00 98.2 153/62 (92) 98.2 Total Intake and Output 06/02/24 06/02/24 06/03/24 15:00 23:00 07:00 Intake Total 50 ml 436 ml 670 ml Balance 50 ml 436 ml 670 ml medications Current Medications Medications Dose Ordered Sig/Jim Route Start Time Stop Time Status Last Admin Dose Admin Ceftriaxone Sodium 50 ml @ 100 mls/hr DAILY@09 IV 05/30/24 09:00 06/03/24 09:31 100 MLS/HR Acetaminophen/ Hydrocodone Bitart 1 tab Q4HP PRN PO 05/29/24 10:30 Ondansetron HCl 4 mg Q4HP PRN IV 05/29/24 10:30 Zinc Sulfate 220 mg DAILY PO 05/30/24 10:00 06/03/24 09:31 220 MG Ascorbic Acid 500 mg BID PO 05/29/24 22:00 06/03/24 09:31 500 MG Multivitamins 1 tab DAILY PO 05/30/24 10:00 06/03/24 09:31 1 TAB Acetaminophen 650 mg Q6HP PRN PO 05/29/24 10:30 Hold Nitroglycerin 0.4 mg Q5MINP PRN SL 05/29/24 10:30 Azithromycin 250 mg DAILY PO 05/30/24 10:00 06/03/24 09:31 250 MG Albuterol 2.5 mg Q4HR NEB 05/29/24 14:00 06/03/24 13:48 2.5 MG Albuterol 2.5 mg Q2HPRN PRN NEB 05/29/24 10:30 Acetaminophen 500 mg Q4HPRN PRN PO 05/29/24 10:45 Vancomycin HCl 0 ml @ 0 mls/hr UD IV 05/30/24 16:00 Losartan Potassium 100 mg DAILY PO 05/30/24 17:30 06/03/24 09:31 100 MG Hydralazine HCl 10 mg Q6HP PRN IV 06/01/24 08:30 06/02/24 13:23 10 MG Amlodipine Besylate 10 mg DAILY PO 06/01/24 08:30 06/02/24 09:55 10 MG Clonidine HCl 0.1 mg Q8HPRN PRN PO 06/01/24 17:15 06/03/24 05:42 0.1 MG Vancomycin HCl 200 ml @ 200 mls/hr Q12H IV 06/02/24 17:00 06/03/24 05:33 200 MLS/HR Methylprednisolone Sodium Succinate 40 mg DAILY IV 06/03/24 10:00 06/03/24 09:31 40 MG Examination GEN: Healthy appearing, well-developed, NAD. with o2 2 lt PSYCH: Good Judgment. AOx3. Normal memory, mood, and affect. HEENT -Head: normocephalic atraumatic, no facial trauma, neck is supple -Eyes: PERRL, EOMI. No discharge or redness; -Ears: External ears are normal. Normal TMs. -Nose: Normal nares. NECK: Supple, with no masses. CV: RRR, no m/r/g. LUNGS: clear ABD: Soft, ND/NT. No evidence of fluid wave. No pulsatile masses on exam, rebound tenderness, Liu sign or pain over Mcburney's point. : N/A SKIN: Warm, well perfused. No skin rashes or abnormal lesions. MSK: No deformities or signs of scoliosis. Normal gait. EXT: No clubbing, cyanosis, or edema. NEURO: Ambulating with no limitations. Normal muscle strength and tone. No focal deficits laboratory and microbiology Laboratory Tests 06/03/24 05:32 Test 06/03/24 05:32 Range/Units Serum Glucose 335 H 74-106 mg/dL Microbiology Date/Time Source Procedure Growth Status 05/30/24 17:00 Sputum Gram Stain - Final Complete 05/30/24 17:00 Respiratory Culture - Final Methicillin Resistant S.aureus Complete 05/30/24 09:30 Nose MRSA Screen - Final Complete 05/29/24 09:36 Blood Blood Culture - Final NO GROWTH AFTER 5 DAYS OF INCUBATION. Complete Problem List/Assessment/Plan Problem List/Assessment/Plan #Acute respiratory failure due to pneumonia and COPD exacerbation #Sepsis due to pneumonia gram+/- and bacteremia MRSA #Hemoptysis #Acute on chronic COPD exacerbation #chronic diastolic heart failure #Hypertensive heart disease #Multilobar pneumonia due to gram + most likely #Transaminitis #Hypokalemia #Hypertension #PE ruled out #H/o of previous TB infection Angio ct scan: 1. There is no evidence of a pulmonary arterial filling defect to suggest pulmonary embolism. 2. There there are multilevel areas of lobular consolidation, moderate in size in the right middle lobe and posterior left lower lobe. Findings are compatible with multilobar pneumonia. Clinical correlation is recommended. Blood culture: may 29: MRSA Viral panel negative Respiratory culture: MRSA O2 2 lts IV AB: ceftriaxone, vancomycin and azythromycin Breathing treatments Methylpredinosone 40 mg IV Losartan 100 mg PO Amlodipine 10 mg PO Hydralazine PRN Insulin sliding scale We are pending on quantiferon levels to DC Case discussed with Dr Zavala Time spent on care 23 min Plan discussed with: Patient, Other (rn) My Orders My Orders Orders - GONZALO FRANCOIS RESIDENT Procedure Category Date Status Time Vancomycin 1gm/200ml PHA 06/02/24 In Process Premix 17:00 Vancomycin Per MELQUIADES 06/04/24 In Process Pharmacy Protoc 05:00 Vancomycin,Trough LAB 06/04/24 Verified 04:00 Creatinine LAB 06/04/24 Verified 04:00 Methylprednisolone PHA 06/03/24 In Process Sod Succ (Solu Medrol 10:00 Dietary Evaluation Review Comments: 1. Consider adding CCHO 60g diet for high BG Expected Outcomes/Goals: 1. Pt will consume >75% of estimated needs within 3-5 days GONZALO FRANCOIS RESIDENT Jun 03, 2024 14:15
[2024-06-03] MEDS ORDERED: DEXTROSE (50%) 50ML SYRG IV PRN (18:15)
[2024-06-03] MEDS: ACCU-CHEK COMFORT CURVE STRIP VI SCH (21:25)
[2024-06-03] MEDS: InsuLIN REG 1unit/0.01ml Soln (100units/ml) SC SCH (21:29)
--- NOTE | 2024-06-03 21:37 | DVHPN2 ---
Progress Note - Dictate Date Seen: Jun 03, 2024 Has the PT tested + for MRSA If YES, has PT been informed?: No Medical Necessity Reason Pt with a Central, PICC or Fol: No Subjective Patient seen and examined at bedside. Remains on supplemental oxygen Overnight events reviewed. vital signs Vital Sign Date Time Temp Pulse Resp B/P (MAP) Pulse Ox O2 Delivery O2 Flow Rate FiO2 06/03/24 21:22 180/87 06/03/24 21:00 97.8 86 17 95 97.8 06/03/24 20:00 Nasal Cannula* 1 24 Total Intake and Output 06/02/24 06/02/24 06/03/24 15:00 23:00 07:00 Intake Total 50 ml 436 ml 670 ml Balance 50 ml 436 ml 670 ml medications Current Medications Medications Dose Ordered Sig/Jim Route Start Time Stop Time Status Last Admin Dose Admin Ceftriaxone Sodium 50 ml @ 100 mls/hr DAILY@09 IV 05/30/24 09:00 06/03/24 09:31 100 MLS/HR Acetaminophen/ Hydrocodone Bitart 1 tab Q4HP PRN PO 05/29/24 10:30 Ondansetron HCl 4 mg Q4HP PRN IV 05/29/24 10:30 Zinc Sulfate 220 mg DAILY PO 05/30/24 10:00 06/03/24 09:31 220 MG Ascorbic Acid 500 mg BID PO 05/29/24 22:00 06/03/24 21:21 500 MG Multivitamins 1 tab DAILY PO 05/30/24 10:00 06/03/24 09:31 1 TAB Acetaminophen 650 mg Q6HP PRN PO 05/29/24 10:30 Hold Nitroglycerin 0.4 mg Q5MINP PRN SL 05/29/24 10:30 Azithromycin 250 mg DAILY PO 05/30/24 10:00 06/03/24 09:31 250 MG Albuterol 2.5 mg Q4HR NEB 05/29/24 14:00 06/03/24 19:15 2.5 MG Albuterol 2.5 mg Q2HPRN PRN NEB 05/29/24 10:30 Acetaminophen 500 mg Q4HPRN PRN PO 05/29/24 10:45 Vancomycin HCl 0 ml @ 0 mls/hr UD IV 05/30/24 16:00 Losartan Potassium 100 mg DAILY PO 05/30/24 17:30 06/03/24 09:31 100 MG Hydralazine HCl 10 mg Q6HP PRN IV 06/01/24 08:30 06/02/24 13:23 10 MG Amlodipine Besylate 10 mg DAILY PO 06/01/24 08:30 06/02/24 09:55 10 MG Clonidine HCl 0.1 mg Q8HPRN PRN PO 06/01/24 17:15 06/03/24 21:22 0.1 MG Vancomycin HCl 200 ml @ 200 mls/hr Q12H IV 06/02/24 17:00 06/03/24 17:14 200 MLS/HR Methylprednisolone Sodium Succinate 40 mg DAILY IV 06/03/24 10:00 06/03/24 09:31 40 MG Diagnostic Test (Pha) 1 strip ACHS 06/03/24 22:00 06/03/24 21:25 1 STRIP Insulin Human Regular ACHS SC 06/03/24 22:00 06/03/24 21:29 10 UNITS Dextrose 50 ml UD PRN IV 06/03/24 18:15 objective Gen.: Patient lying in bed in no apparent distress. On supplemental oxygen. Head: Normocephalic, atraumatic. Eyes: EOMI/PERRLA. Ears: Normal hearing. Normal anatomy. Neck/trachea: Trachea midline, supple. Nose: Normal external anatomy. Mouth: Moist mucous membranes. Chest: Decreased air entry bilaterally. No wheezing or rhonchi. Cardiovascular: Positive S1, positive S2. Regular rate and rhythm. Abdomen: Positive bowel sounds in all 4 quadrants. Soft, non-tender, non- distended. : Deferred. Rectal: Deferred. Skin: Warm, dry. Intact. Extremities: 2+ radial pulses bilaterally. No lower extremity edema. Neuro: Awake, alert, oriented x3. No gross motor or sensory deficits. Cranial nerves II through XII intact. Gait not assessed. laboratory and microbiology Laboratory Tests 06/03/24 05:32 Test 06/03/24 05:32 Range/Units Serum Glucose 335 H 74-106 mg/dL Assessment/Plan Impression: Acute hypoxic respiratory failure Hemoptysis Acute on chronic COPD exacerbation Pneumonia d/t MRSA. Atelectasis Sepsis Transaminitis Hypokalemia Hypertension Hx of nicotine dependence (quit in 2009). Events: Remains on supplemental oxygen, 1 LPM NC Taper O2 as tolerated Incentive spirometry Continue antibiotics - vancomycin/ceftriaxone. Recommend to complete antibiotic course. Recommend repeat CT chest without contrast in 6-8 weeks. Awaiting Quantiferon Gold test. Less likely TB, but will consider bronchoscopy depending on Quantiferon GOLD test. Complete steroid course. Continue bronchodilators Vitamin supplementation From pulmonary standpoint if Quantiferon Gold test is negative, patient can be discharged. Labs and imaging reviewed. Rest of plan as noted below. Plan: Supplemental oxygen Titrate to keep O2 sats above 92%. Taper O2 as tolerated. CXR demonstrates multifocal airspace disease, [id number]. CTA demonstrated no e/o pulmonary embolism. Multilevel areas of lobular consolidation, moderate in size in the right middle lobe and posterior left lower lobe. Findings are compatible with multilobar pneumonia. Bronchodilators. Antibiotics Monitor renal function. Monitor electrolytes. Supplement as necessary. Monitor ins and outs. Potassium supplementation DVT prophylaxis. Prognosis: Poor given patient's multiple co-morbidities. Rest of plan per hospitalist and other consultants. Thank you TERRELL Parra, for allowing me to participate in this patient's care. Further recommendations will depend on the patient's clinical course. Please do not hesitate to contact me if you have any questions or concerns. This medical document was created using an electronic medical record system with [email or web address] dictation system. Although these documentations are being carefully reviewed, there may still be some phonetic and typographical changes. The errors are purely typographical, due to imperfection on the software program, and do not reflect any compromise in the patient's medical care. Dietary Evaluation Review Comments: 1. Consider adding CCHO 60g diet for high BG Expected Outcomes/Goals: 1. Pt will consume >75% of estimated needs within 3-5 days Plan discussed with: Patient, Other (CARLOS A Mckenna) HEIDI ALMANZA MD Jun 03, 2024 21:37
[2024-06-04] VITALS (20 sets, daily range): BP systolic 104–154; BP diastolic 63–81; PULSE 81–110; RESP 14–20; TEMP 98–98.8; O2SAT 95–100
[2024-06-04 04:33] LABS: Hematocrit 38.5 % (36.0-46.0); Hemoglobin 12.8 g/dL (12.2-16.2); Mean Corpuscular Hemoglobin 27.1 pg (28.0-32.0); Mean Corpuscular Hgb Conc. 33.2 g/dL (32.0-36.0); Mean Corpuscular Volume 81.6 fL (80.0-100.0); Platelet Count (auto) 227 10^3/uL (140-450); Red Blood Cells 4.71 10^6/uL (4.0-5.20); Red Cell Distribution Width 14.1 % (11.8-14.3); White Blood Cell 11.5 10^3/uL (4.4-10.8)
[2024-06-04 04:37] LABS: Basophils % (manual) 0 (0.0-2.0); Blast Cells 0; Eosinophils % (manual) 0 (0-7); Metamyelocytes % 0; Myelocytes % 0; Promyelocytes % 0; Reactive Lymphocytes 0
[2024-06-04 04:46] LABS: Alanine Aminotransferase 61 U/L (7-40); Albumin 3.1 g/dL (3.2-4.8); Alkaline Phosphatase 108 U/L (46-116); Anion Gap 8 (5-15); Aspartate Aminotransferase 34 U/L (13-40); BUN/Creatinine Ratio 30.6 (10.0-20.0); Bilirubin, Total 0.8 mg/dL (0.2-1.0); Blood Urea Nitrogen 19 mg/dL (9-23); Carbon Dioxide 24 mmol/L (20-31); Chloride 104 mmol/L (98-107); Glucose 117 mg/dL (74-106); Potassium 3.5 mmol/L (3.5-5.1); Sodium 136 mmol/L (136-145); Total Protein 6.2 g/dL (5.7-8.2)
[2024-06-04 06:02] LABS: Band Neutrophils % (manual) 3; Lymphocytes % (manual) 12 (10.0-50.0); Monocytes % (manual) 7 (0-12); Platelet Estimate Adequate
[2024-06-04] MEDS ORDERED: VANCOMYCIN 750mg/150ml 150 ML IV SCH (11:00)
[2024-06-04] MEDS ORDERED: VANCOMYCIN 1GM/250ML KIT 200 ML IV SCH (12:00)
--- NOTE | 2024-06-04 13:00 | DVHPNRES ---
Progress Note Date Seen: Jun 04, 2024 Resident Creating Document: GONZALO FRANCOIS RESIDENT Has the PT tested + for MRSA If YES, has PT been informed?: No Medical Necessity Reason Pt with a Central, PICC or Fol: No Subjective Review of Systems A 69 year old woman with past medical history of TB, COPD and hypertension come to the ED for shortness of breath for about 2 or 3 months ago but exacerbates from 5 days also patient came with a cough with bloody sputum and mild fevers. Pt had previously history of smoking Objective vital signs Vital Sign Date Time Temp Pulse Resp B/P (MAP) Pulse Ox O2 Delivery O2 Flow Rate FiO2 06/04/24 10:31 153/63 06/04/24 10:06 95 16 98 06/04/24 10:00 Room Air* 0 21 06/04/24 09:00 98.0 98.0 Total Intake and Output 06/03/24 06/03/24 06/04/24 15:00 23:00 07:00 Intake Total 50 ml 1145 ml 900 ml Balance 50 ml 1145 ml 900 ml medications Current Medications Medications Dose Ordered Sig/Jim Route Start Time Stop Time Status Last Admin Dose Admin Acetaminophen/ Hydrocodone Bitart 1 tab Q4HP PRN PO 05/29/24 10:30 Ondansetron HCl 4 mg Q4HP PRN IV 05/29/24 10:30 Zinc Sulfate 220 mg DAILY PO 05/30/24 10:00 06/04/24 10:31 220 MG Ascorbic Acid 500 mg BID PO 05/29/24 22:00 06/04/24 10:31 500 MG Multivitamins 1 tab DAILY PO 05/30/24 10:00 06/04/24 10:31 1 TAB Acetaminophen 650 mg Q6HP PRN PO 05/29/24 10:30 Hold Nitroglycerin 0.4 mg Q5MINP PRN SL 05/29/24 10:30 Albuterol 2.5 mg Q4HR NEB 05/29/24 14:00 06/04/24 10:00 2.5 MG Albuterol 2.5 mg Q2HPRN PRN NEB 05/29/24 10:30 Acetaminophen 500 mg Q4HPRN PRN PO 05/29/24 10:45 Vancomycin HCl 0 ml @ 0 mls/hr UD IV 05/30/24 16:00 Losartan Potassium 100 mg DAILY PO 05/30/24 17:30 06/04/24 10:30 100 MG Hydralazine HCl 10 mg Q6HP PRN IV 06/01/24 08:30 06/02/24 13:23 10 MG Amlodipine Besylate 10 mg DAILY PO 06/01/24 08:30 06/04/24 10:31 10 MG Clonidine HCl 0.1 mg Q8HPRN PRN PO 06/01/24 17:15 06/03/24 21:22 0.1 MG Methylprednisolone Sodium Succinate 40 mg DAILY IV 06/03/24 10:00 06/03/24 09:31 40 MG Diagnostic Test (Pha) 1 strip ACHS 06/03/24 22:00 06/04/24 11:44 1 STRIP Insulin Human Regular ACHS SC 06/03/24 22:00 06/04/24 11:44 4 UNITS Dextrose 50 ml UD PRN IV 06/03/24 18:15 Vancomycin HCl 250 ml @ 166.667 mls/hr Q10H IV 06/04/24 15:00 Examination GEN: Healthy appearing, well-developed, NAD. with o2 2 lt PSYCH: Good Judgment. AOx3. Normal memory, mood, and affect. HEENT -Head: normocephalic atraumatic, no facial trauma, neck is supple -Eyes: PERRL, EOMI. No discharge or redness; -Ears: External ears are normal. Normal TMs. -Nose: Normal nares. NECK: Supple, with no masses. CV: RRR, no m/r/g. LUNGS: clear ABD: Soft, ND/NT. No evidence of fluid wave. No pulsatile masses on exam, rebound tenderness, Liu sign or pain over Mcburney's point. : N/A SKIN: Warm, well perfused. No skin rashes or abnormal lesions. MSK: No deformities or signs of scoliosis. Normal gait. EXT: No clubbing, cyanosis, or edema. NEURO: Ambulating with no limitations. Normal muscle strength and tone. No focal deficits laboratory and microbiology Laboratory Tests 06/04/24 04:05 Test 06/04/24 04:05 Range/Units Serum Glucose 117 H 74-106 mg/dL Microbiology Date/Time Source Procedure Growth Status 05/30/24 17:00 Sputum Gram Stain - Final Complete 05/30/24 17:00 Respiratory Culture - Final Methicillin Resistant S.aureus Complete 05/30/24 09:30 Nose MRSA Screen - Final Complete 05/29/24 09:36 Blood Blood Culture - Final NO GROWTH AFTER 5 DAYS OF INCUBATION. Complete Problem List/Assessment/Plan Problem List/Assessment/Plan #Acute respiratory failure due to pneumonia and COPD exacerbation #Sepsis due to pneumonia gram+/- and bacteremia MRSA #Hemoptysis resolved #Acute on chronic COPD exacerbation #chronic diastolic heart failure #Hypertensive heart disease #Multilobar pneumonia due to gram + most likely #Transaminitis #Hypokalemia #Hypertension #PE ruled out #H/o of previous TB infection Angio ct scan: 1. There is no evidence of a pulmonary arterial filling defect to suggest pulmonary embolism. 2. There there are multilevel areas of lobular consolidation, moderate in size in the right middle lobe and posterior left lower lobe. Findings are compatible with multilobar pneumonia. Clinical correlation is recommended. Blood culture: may 29: MRSA Viral panel negative Respiratory culture: MRSA Room air IV AB: vancomycin Breathing treatments Methylpredinosone 40 mg IV Losartan 100 mg PO Amlodipine 10 mg PO Hydralazine PRN Insulin sliding scale Quantiferon levels negative, patient will be sent home with IV AB for 4 weeks SS consult placed Case discussed with Dr Zavala Time spent on care 23 min Plan discussed with: Patient, Other (rn) My Orders My Orders Orders - GONZALO FRANCOIS RESIDENT Procedure Category Date Status Time Blood Culture HENNY 06/04/24 Logged 07:45 * Picc Line Consult CONS 06/04/24 Transmitted 10:14 Vancomycin,Trough LAB 06/05/24 Verified 10:00 Basic Metabolic Panel LAB 06/05/24 Verified 04:00 * [place] CONS 06/04/24 Transmitted Consult Vancomycin 1gm/250ml PHA 06/04/24 In Process Kit 15:00 Vancomycin Per MELQUIADES 06/05/24 In Process Pharmacy Protoc 11:00 Dietary Evaluation Review Comments: 1. Consider adding CCHO 60g diet for high BG Expected Outcomes/Goals: 1. Pt will consume >75% of estimated needs within 3-5 days GONZALO FRANCOIS RESIDENT Jun 04, 2024 13:00
[2024-06-04 14:06] LABS: QuantiFERON-TB Gold Plus Negative (Negative)
[2024-06-04] MEDS: VANCOMYCIN 1GM/250ML KIT 250 ML IV SCH (15:50)
[2024-06-04 16:50] LABS: INR 1.15 (0.9-1.15); Prothrombin Time 12.1 sec (9.3-11.8)
--- NOTE | 2024-06-04 21:23 | DVHPN2 ---
Progress Note - Dictate Date Seen: Jun 04, 2024 Has the PT tested + for MRSA If YES, has PT been informed?: No Medical Necessity Reason Pt with a Central, PICC or Fol: No Subjective Patient seen and examined at bedside. Breathing on room air Overnight events reviewed. vital signs Vital Sign Date Time Temp Pulse Resp B/P (MAP) Pulse Ox O2 Delivery O2 Flow Rate FiO2 06/04/24 20:04 Room Air* 0 21 06/04/24 19:48 97 20 100 06/04/24 18:29 154/70 06/04/24 16:22 98.8 98.8 Total Intake and Output 06/03/24 06/03/24 06/04/24 15:00 23:00 07:00 Intake Total 50 ml 1145 ml 900 ml Balance 50 ml 1145 ml 900 ml medications Current Medications Medications Dose Ordered Sig/Jim Route Start Time Stop Time Status Last Admin Dose Admin Acetaminophen/ Hydrocodone Bitart 1 tab Q4HP PRN PO 05/29/24 10:30 Ondansetron HCl 4 mg Q4HP PRN IV 05/29/24 10:30 Zinc Sulfate 220 mg DAILY PO 05/30/24 10:00 06/04/24 10:31 220 MG Ascorbic Acid 500 mg BID PO 05/29/24 22:00 06/04/24 10:31 500 MG Multivitamins 1 tab DAILY PO 05/30/24 10:00 06/04/24 10:31 1 TAB Acetaminophen 650 mg Q6HP PRN PO 05/29/24 10:30 Hold Nitroglycerin 0.4 mg Q5MINP PRN SL 05/29/24 10:30 Albuterol 2.5 mg Q4HR NEB 05/29/24 14:00 06/04/24 19:42 2.5 MG Albuterol 2.5 mg Q2HPRN PRN NEB 05/29/24 10:30 Acetaminophen 500 mg Q4HPRN PRN PO 05/29/24 10:45 Vancomycin HCl 0 ml @ 0 mls/hr UD IV 05/30/24 16:00 Losartan Potassium 100 mg DAILY PO 05/30/24 17:30 06/04/24 10:30 100 MG Hydralazine HCl 10 mg Q6HP PRN IV 06/01/24 08:30 06/04/24 18:29 10 MG Amlodipine Besylate 10 mg DAILY PO 06/01/24 08:30 06/04/24 10:31 10 MG Clonidine HCl 0.1 mg Q8HPRN PRN PO 06/01/24 17:15 06/03/24 21:22 0.1 MG Methylprednisolone Sodium Succinate 40 mg DAILY IV 06/03/24 10:00 06/04/24 13:59 40 MG Diagnostic Test (Pha) 1 strip ACHS 06/03/24 22:00 06/04/24 16:57 1 STRIP Insulin Human Regular ACHS SC 06/03/24 22:00 06/04/24 16:57 8 UNITS Dextrose 50 ml UD PRN IV 06/03/24 18:15 Vancomycin HCl 250 ml @ 166.667 mls/hr Q10H IV 06/04/24 15:00 06/04/24 15:50 166.667 MLS/HR objective Gen.: Patient lying in bed in no apparent distress. Breathing on room air Head: Normocephalic, atraumatic. Eyes: EOMI/PERRLA. Ears: Normal hearing. Normal anatomy. Neck/trachea: Trachea midline, supple. Nose: Normal external anatomy. Mouth: Moist mucous membranes. Chest: Decreased air entry bilaterally. No wheezing or rhonchi. Cardiovascular: Positive S1, positive S2. Regular rate and rhythm. Abdomen: Positive bowel sounds in all 4 quadrants. Soft, non-tender, non- distended. : Deferred. Rectal: Deferred. Skin: Warm, dry. Intact. Extremities: 2+ radial pulses bilaterally. No lower extremity edema. Neuro: Awake, alert, oriented x3. No gross motor or sensory deficits. Cranial nerves II through XII intact. Gait not assessed. laboratory and microbiology Laboratory Tests 06/04/24 04:05 Test 06/04/24 04:05 Range/Units Serum Glucose 117 H 74-106 mg/dL Assessment/Plan Impression: Acute hypoxic respiratory failure Hemoptysis Acute on chronic COPD exacerbation Pneumonia d/t MRSA. Atelectasis Sepsis Transaminitis Hypokalemia Hypertension Hx of nicotine dependence (quit in 2009). Events: Currently breathing on room air No respiratory distress Patient improving, feeling better. Incentive spirometry Complete antibiotic course for MRSA bacteremia and pneumonia. Recommend outpatient CT chest without contrast in 6-8 weeks to document resolution of opacities. Quantiferon Gold test came back negative. Complete steroid course. Vitamin supplementation Patient is stable for discharge from the pulmonary standpoint. Labs and imaging reviewed. Rest of plan as noted below. Plan: Supplemental oxygen PRN Titrate to keep O2 sats above 92%.. CXR demonstrates multifocal airspace disease, [id number]. CTA demonstrated no e/o pulmonary embolism. Multilevel areas of lobular consolidation, moderate in size in the right middle lobe and posterior left lower lobe. Findings are compatible with multilobar pneumonia. Bronchodilators. Antibiotics Monitor renal function. Monitor electrolytes. Supplement as necessary. Monitor ins and outs. Potassium supplementation DVT prophylaxis. Prognosis: Poor given patient's multiple co-morbidities. Rest of plan per hospitalist and other consultants. Thank you TERRELL Parra, for allowing me to participate in this patient's care. Further recommendations will depend on the patient's clinical course. Please do not hesitate to contact me if you have any questions or concerns. This medical document was created using an electronic medical record system with [employer] dictation system. Although these documentations are being carefully reviewed, there may still be some phonetic and typographical changes. The errors are purely typographical, due to imperfection on the software program, and do not reflect any compromise in the patient's medical care. Dietary Evaluation Review Comments: 1. Consider adding CCHO 60g diet for high BG Expected Outcomes/Goals: 1. Pt will consume >75% of estimated needs within 3-5 days Plan discussed with: Patient, Other (CARLOS A Shepard) HEIDI ALMANZA MD Jun 04, 2024 21:23
[2024-06-05] VITALS (12 sets, daily range): BP systolic 120–176; BP diastolic 65–85; PULSE 75–110; RESP 16–20; TEMP 36.7; O2SAT 94–100
[2024-06-05 07:50] LABS: Basophils # (auto) 0 10 ^3/uL (0-0.2); Basophils % (auto) 0.2 % (0.0-2.0); Eosinophils # (auto) 0 10 ^3/uL (0-0.8); Eosinophils % (auto) 0.2 % (0.0-7.0); Hemoglobin 14.3 g/dL (12.2-16.2); Lymphocytes # (auto) 1.8 10 ^3/uL (0.4-5.4); Lymphocytes % (auto) 11.3 % (10.0-50.0); Mean Corpuscular Hemoglobin 27.3 pg (28.0-32.0); Mean Corpuscular Hgb Conc. 33.3 g/dL (32.0-36.0); Mean Corpuscular Volume 81.8 fL (80.0-100.0); Monocytes # (auto) 1.2 10 ^3/uL (0-1.3); Monocytes % (auto) 7.4 % (0.0-12.0); Neutrophils # (auto) 12.7 10 ^3/uL (1.6-8.6); Neutrophils % (auto) 80.9 % (37.0-80.0); Nucleated Red Blood Cells % 0.3 %; Platelet Count (auto) 310 10^3/uL (140-450); Red Blood Cells 5.26 10^6/uL (4.0-5.20); Red Cell Distribution Width 14.4 % (11.8-14.3); White Blood Cell 15.7 10^3/uL (4.4-10.8)
[2024-06-05 08:04] LABS: Albumin 3.4 g/dL (3.2-4.8); Anion Gap 10 (5-15); BUN/Creatinine Ratio 22.2 (10.0-20.0); Blood Urea Nitrogen 14 mg/dL (9-23); Calcium 9.2 mg/dL (8.7-10.4); Carbon Dioxide 22 mmol/L (20-31); Chloride 103 mmol/L (98-107); Potassium 3.9 mmol/L (3.5-5.1)
[2024-06-05 08:05] LABS: Bilirubin, Total 1.1 mg/dL (0.2-1.0); Total Protein 6.9 g/dL (5.7-8.2)
[2024-06-05 08:06] LABS: Alanine Aminotransferase 95 U/L (7-40); Alkaline Phosphatase 130 U/L (46-116); Aspartate Aminotransferase 66 U/L (13-40); Glucose 133 mg/dL (74-106); Sodium 135 mmol/L (136-145)
[2024-06-05] MEDS ORDERED: LOSA-534 PO (14:02)
[2024-06-05] MEDS ORDERED: ACET-1882 PO (14:02)
[2024-06-05] MEDS ORDERED: LINE1TAB6 PO (14:02)
[2024-06-05] MEDS ORDERED: ASCO500T11 PO (14:02)
[2024-06-05] MEDS ORDERED: AML5T PO (14:02)
[2024-06-05] MEDS ORDERED: MULTTAB99 PO (14:02)
--- NOTE | 2024-06-05 16:12 | DVHDSRES ---
Discharge Summary Date of Admission Resident Creating Document: GONZALO FRANCOIS RESIDENT May 29, 2024 at 10:16 Date of Discharge: Jun 05, 2024 Admitting Diagnosis pneumonia and bacteremia MRSA Labs/Diagnostic Data: Laboratory Results Test 06/05/24 11:36 06/05/24 10:04 06/05/24 07:14 06/04/24 16:10 POC Glucose 345 mg/dl (70-106) Vancomycin Level Trough 15.4 ug/mL (5-10) White Blood Count 15.7 10^3/uL (4.4-10.8) Red Blood Count 5.26 10^6/uL (4.0-5.20) Hemoglobin 14.3 g/dL (12.2-16.2) Hematocrit 43.0 % (36.0-46.0) Mean Corpuscular Volume 81.8 fL (80.0-100.0) Mean Corpuscular Hemoglobin 27.3 pg (28.0-32.0) Mean Corpuscular Hemoglobin Concent 33.3 g/dL (32.0-36.0) Red Cell Distribution Width 14.4 % (11.8-14.3) Platelet Count 310 10^3/uL (140-450) Mean Platelet Volume 8.8 fL (6.9-10.8) Neutrophils (%) (Auto) 80.9 % (37.0-80.0) Lymphocytes (%) (Auto) 11.3 % (10.0-50.0) Monocytes (%) (Auto) 7.4 % (0.0-12.0) Eosinophils (%) (Auto) 0.2 % (0.0-7.0) Basophils (%) (Auto) 0.2 % (0.0-2.0) Neutrophils # (Auto) 12.7 10 ^3/uL (1.6-8.6) Lymphocytes # (Auto) 1.8 10 ^3/uL (0.4-5.4) Monocytes # (Auto) 1.2 10 ^3/uL (0-1.3) Eosinophils # (Auto) 0 10 ^3/uL (0-0.8) Basophils # (Auto) 0 10 ^3/uL (0-0.2) Nucleated Red Blood Cells 0.3 % Sodium Level 135 mmol/L (136-145) Potassium Level 3.9 mmol/L (3.5-5.1) Chloride Level 103 mmol/L (98-107) Carbon Dioxide Level 22 mmol/L (20-31) Anion Gap 10 (5-15) Blood Urea Nitrogen 14 mg/dL (9-23) Creatinine 0.63 mg/dL (0.550-1.02) Glomerular Filtration Rate Calc 95 mL/min (>90) BUN/Creatinine Ratio 22.2 (10.0-20.0) Serum Glucose 133 mg/dL (74-106) Calcium Level 9.2 mg/dL (8.7-10.4) Total Bilirubin 1.1 mg/dL (0.2-1.0) Aspartate Amino Transferase (AST) 66 U/L (13-40) Alanine Aminotransferase (ALT) 95 U/L (7-40) Alkaline Phosphatase 130 U/L (46-116) Total Protein 6.9 g/dL (5.7-8.2) Albumin 3.4 g/dL (3.2-4.8) Prothrombin Time 12.1 sec (9.3-11.8) Prothrombin Time INR 1.15 (0.9-1.15) Test 06/04/24 04:05 06/03/24 05:32 06/02/24 06:01 06/01/24 04:46 Differential Total Cells Counted 100.0 (100) Neutrophils % (Manual) 78 (37.0-80.0) Band Neutrophils % (Manual) 3 Lymphocytes % (Manual) 12 (10.0-50.0) Monocytes % (Manual) 7 (0-12) Eosinophils % (Manual) 0 (0-7) Basophils % (Manual) 0 (0.0-2.0) Metamyelocytes % (manual) 0 Myelocytes % (Manual) 0 Promyelocytes % (Manual) 0 Blast Cells % (Manual) 0 Reactive Lymphocytes 0 Platelet Estimate Adequate Phosphorus Level 3.3 mg/dL (2.4-5.1) Magnesium Level 2.0 mg/dL (1.6-2.6) Red Blood Cell Morphology Normal Giant Platelets Few Test 05/30/24 14:58 05/30/24 09:30 05/30/24 06:35 05/29/24 09:36 HIV (1&2) Antibody Negative (Negative) TB Test (QFT) Gold Plus Negative (Negative) TB Test (QFT) Nil 0.00 IU/mL (.) TB Test (QFT) Mitogen 2.52 IU/mL (.) TB Test (QFT) Antigen 1 0.00 IU/mL (.) TB Test (QFT) Antigen 2 0.00 IU/mL (.) TB Test (QFT) Criteria Comment (.) Influenza Type A Antigen Negative (Negative) Influenza Type B Antigen Negative (Negative) SARS-CoV-2 Antigen (Rapid) Negative (NEGATIVE) Hemoglobin A1c 5.7 % A1C (<5.7) Lactic Acid Level 1.2 mmol/L (0.4-2.0) Thyroid Stimulating Hormone (TSH) 0.91 uIU/mL (0.55-4.78) Troponin I High Sensitivity 11 ng/L (</=34) Test 05/29/24 07:03 Large Platelets Few Erythrocyte Sedimentation Rate 25 mm/hr (0-20) D-Dimer, Quantitative 0.97 mg/L FEU (0.0-0.49) C-Reactive Protein High Sensitivity 6.56 mg/dL (<1.0) B-Type Natriuretic Peptide 101.24 pg/mL (0-100) Lipase 30 U/L (12-53) Other Laboratory Tests 06/05/24 07:14 Brief Hx & Hospital Course: A 69-year-old woman with a history of tuberculosis, COPD, and hypertension was admitted for acute respiratory failure due to pneumonia and COPD exacerbation. She presented with shortness of breath, cough with bloody sputum, and mild fevers. Imaging showed findings consistent with multilobar pneumonia, PE was ruled out in angioCT scan, and respiratory cultures confirmed MRSA, blood cultures were positive for MRSA. Initial treatment included IV antibiotics and respiratory support, with improvement noted over the hospital course. Her condition stabilized with no further signs of acute distress. Quantiferon negative. Control Blood cultures negative in 24h The patient is discharged in stable condition with a prescription for oral Zyvox to complete the treatment for MRSA pneumonia and bacteremia for 4 weeks. She is advised to follow up with her primary care physician and front office secretary to monitor for any signs of symptom recurrence, such as worsening shortness of breath or fever. Precautions include avoiding contact with infectious individuals and reporting any side effects from Zyvox, including easy bruising or gastrointestinal symptoms. GEN: Healthy appearing, well-developed, NAD. with o2 2 lt PSYCH: Good Judgment. AOx3. Normal memory, mood, and affect. HEENT -Head: normocephalic atraumatic, no facial trauma, neck is supple -Eyes: PERRL, EOMI. No discharge or redness; -Ears: External ears are normal. Normal TMs. -Nose: Normal nares. NECK: Supple, with no masses. CV: RRR, no m/r/g. LUNGS: clear ABD: Soft, ND/NT. No evidence of fluid wave. No pulsatile masses on exam, rebound tenderness, Liu sign or pain over Mcburney's point. : N/A SKIN: Warm, well perfused. No skin rashes or abnormal lesions. MSK: No deformities or signs of scoliosis. Normal gait. EXT: No clubbing, cyanosis, or edema. NEURO: Ambulating with no limitations. Normal muscle strength and tone. No focal deficits Case discussed with Dr Zavala Time spent 23 min Consults/Reason for consult front office secretary due to hemoptisis and MRSA pneumonia Operations or Procedures CTA CHEST INDICATION: SOB TECHNIQUE: Multidetector CTA of the chest was performed of the chest with 100 cc of intravenous contrast. PULMONARY ANGIOGRAPHY PROTOCOL was utilized using a bolus-tracking technique centered on the main pulmonary artery. Axial, coronal and sagittal multiplanar and MIP reformats were performed. Radiation Dose Information: CT Dose: CTDI volume is 10.5 mGy. Dose-length product is 349 mGy*cm The dose indicators for CT are the volume Computed Tomography (CT) Dose Index (CTDIvol) and the Dose Length Product (DLP), and are measured in units of mGy and mGy-cm, respectively. These indicators are not patient dose, but values generated from the CT scanner acquisition factors. The report includes radiation exposure data for exposures received during this examination. Comparison: None. Findings: Pulmonary artery: There is no evidence of a pulmonary arterial filling defect to suggest pulmonary embolism. The main pulmonary artery demonstrates normal caliber. Lungs/Pleura: There are moderate size lobular areas of consolidation in the right middle lobe and posterior left lower lobe. There are smaller similar areas of airspace disease in the right upper lobe and minimally in the right lower lobe. There is no evidence of pleural effusion or pneumothorax. The central airways are clear. Heart/Vascular Structures: Normal heart size. The thoracic aorta demonstrates normal caliber. There is no evidence of pericardial effusion. Lymph Nodes: There is no evidence of thoracic lymphadenopathy. Musculoskeletal: No acute osseous abnormality. Upper abdomen: Limited portions of the upper abdomen are unremarkable. IMPRESSION: 1. There is no evidence of a pulmonary arterial filling defect to suggest pulmonary embolism. 2. There there are multilevel areas of lobular consolidation, moderate in size in the right middle lobe and posterior left lower lobe. Findings are compatible with multilobar pneumonia. Clinical correlation is recommended. Condition at Discharge: Stable Final Diagnosis/Problems List #Acute respiratory failure due to pneumonia and COPD exacerbation #Sepsis due to pneumonia gram+/- and bacteremia MRSA #Hemoptysis resolved #Acute on chronic COPD exacerbation #chronic diastolic heart failure #Hypertensive heart disease #Multilobar pneumonia due to gram + most likely #Transaminitis #Hypokalemia #Hypertension #PE ruled out #H/o of previous TB infection #Active TB ruled out Discharge Disposition: Home Discharge Instruct/Medications Diet: Consistent carbohydrate, Cardiac 2g Na,low cholest Activity: No Restrictions, As Tolerated Follow Up/Referral: dc clinic with [facility] to monitor platelets every week pt is on zyvox Medications: see prescription Discharge Statement: "Patient was advised to return to the ER or call 911 if any headaches, dizziness, shortness of breath, chest pain, abdominal pain, bleeding, fevers, or worsening of medical condition. Patient was counseled about treatment plan, medications, possible side effects, patientverbalized understanding. All questions were answered to the best of my ability. This discharge took greater then 30 minutes in planning, reviewing documentation, counseling the patient, and discussing with other team members." ASSESSMENT ASSESSMENT Assessment MRSA pneumonia and bacteremia GONZALO FRANCOIS RESIDENT Jun 05, 2024 16:11
--- NOTE | 2024-06-05 20:35 | DVHPN2 ---
Progress Note - Dictate Date Seen: Jun 05, 2024 Has the PT tested + for MRSA If YES, has PT been informed?: No Medical Necessity Reason Pt with a Central, PICC or Fol: No Subjective Patient seen and examined at bedside. Breathing on room air Overnight events reviewed. vital signs Vital Sign Date Time Temp Pulse Resp B/P (MAP) Pulse Ox O2 Delivery O2 Flow Rate FiO2 06/05/24 17:00 98.6 96 18 139/80 (99) 96 98.6 06/05/24 14:52 Room Air 06/05/24 14:52 0 21 Total Intake and Output 06/04/24 06/04/24 06/05/24 15:00 23:00 07:00 Intake Total 1790 ml 1210 ml Balance 1790 ml 1210 ml objective Gen.: Patient lying in bed in no apparent distress. Breathing on room air Head: Normocephalic, atraumatic. Eyes: EOMI/PERRLA. Ears: Normal hearing. Normal anatomy. Neck/trachea: Trachea midline, supple. Nose: Normal external anatomy. Mouth: Moist mucous membranes. Chest: Decreased air entry bilaterally. No wheezing or rhonchi. Cardiovascular: Positive S1, positive S2. Regular rate and rhythm. Abdomen: Positive bowel sounds in all 4 quadrants. Soft, non-tender, non- distended. : Deferred. Rectal: Deferred. Skin: Warm, dry. Intact. Extremities: 2+ radial pulses bilaterally. No lower extremity edema. Neuro: Awake, alert, oriented x3. No gross motor or sensory deficits. Cranial nerves II through XII intact. Gait not assessed. laboratory and microbiology Laboratory Tests 06/05/24 07:14 Test 06/05/24 07:14 Range/Units Serum Glucose 133 H 74-106 mg/dL Assessment/Plan Impression: Acute hypoxic respiratory failure Hemoptysis Acute on chronic COPD exacerbation Pneumonia d/t MRSA. Atelectasis Sepsis Transaminitis Hypokalemia Hypertension Hx of nicotine dependence (quit in 2009). Events: Currently breathing on room air No respiratory distress Patient improving, feeling better. Incentive spirometry Complete antibiotic course for MRSA bacteremia and pneumonia. Recommend outpatient CT chest without contrast in 6-8 weeks to document resolution of opacities. Quantiferon Gold test negative. Complete steroid course. Vitamin supplementation Patient is stable for discharge from the pulmonary standpoint. Follow up as outpatient in Pulmonary Clinic. Pt will need CT chest in 6-8 weeks. Labs and imaging reviewed. Rest of plan as noted below. Plan: Supplemental oxygen PRN Titrate to keep O2 sats above 92%.. CXR demonstrates multifocal airspace disease, [id number]. CTA demonstrated no e/o pulmonary embolism. Multilevel areas of lobular consolidation, moderate in size in the right middle lobe and posterior left lower lobe. Findings are compatible with multilobar pneumonia. Bronchodilators. Antibiotics Monitor renal function. Monitor electrolytes. Supplement as necessary. Monitor ins and outs. Potassium supplementation DVT prophylaxis. Prognosis: Poor given patient's multiple co-morbidities. Rest of plan per hospitalist and other consultants. Thank you TERRELL Parra, for allowing me to participate in this patient's care. Further recommendations will depend on the patient's clinical course. Please do not hesitate to contact me if you have any questions or concerns. This medical document was created using an electronic medical record system with [employer] dictation system. Although these documentations are being carefully reviewed, there may still be some phonetic and typographical changes. The errors are purely typographical, due to imperfection on the software program, and do not reflect any compromise in the patient's medical care. Dietary Evaluation Review Comments: 1. Consider adding CCHO 60g diet for high BG Expected Outcomes/Goals: 1. Pt will consume >75% of estimated needs within 3-5 days Plan discussed with: Patient, Other (CARLOS A Keenan) HEIDI ALMANZA MD Jun 05, 2024 20:35
== END 2024-06-05 18:30 | disposition home or self-care (01) | DRG 720 ==
LOC: ER 06:45 → TELE 10:16 → TELE-WESTW 23:37 → WEST WING 05-30 16:23 → TELE-WESTW 06-01 20:11 → WEST WING 06-05 10:10
PROVIDERS: ADMIT Internal Medicine Geriatric Medicine; ATTEND Internal Medicine Geriatric Medicine
DX: A41.02 Sepsis due to Methicillin resistant Staphylococcus aureus (principal); J96.01 Acute respiratory failure with hypoxia; I50.33 Acute on chronic diastolic (congestive) heart failure; J15.212 Pneumonia due to Methicillin resistant Staphylococcus aureus; J15.69 Pneumonia due to other Gram-negative bacteria; J15.9 Unspecified bacterial pneumonia; I11.0 Hypertensive heart disease with heart failure; J44.0 Chronic obstructive pulmonary disease with (acute) lower respiratory infection; J44.1 Chronic obstructive pulmonary disease with (acute) exacerbation; E87.6 Hypokalemia; F17.210 Nicotine dependence, cigarettes, uncomplicated; E11.9 Type 2 diabetes mellitus without complications; R74.01 Elevation of levels of liver transaminase levels; R04.2 Hemoptysis; Z82.49 Family history of ischemic heart disease and other diseases of the circulatory system; Z83.3 Family history of diabetes mellitus; Z79.4 Long term (current) use of insulin; Z79.899 Other long term (current) drug therapy
CPT/HCPCS: 36415; 71045; 71275; 80053; 80202; 82962; 83036; 83605; 83690; 83735; 83880; 84100; 84443; 84484; 85007; 85025; 85027; 85379; 85610; 85652; 86141; 86703; 87040; 87070; 87077; 87081; 87186; 87205; 87426; 87804; 93005; 93306; 94640; 96365; 96375; 99291; G0378; J1815; J2003

== ENCOUNTER → 2024-12-06 | Outpatient (CLI) | payer MEDICAID ==
[~2024-12-06] MED LIST changes: +ACET-1882 PO; +AML5T PO; +ASCO500T11 PO; +EMPA1TAB PO; +LINE1TAB6 PO; +LOSA-534 PO; +MONT-8 PO; +MULTTAB99 PO; -NORPTMEDS; +PARO1TAB33 PO
[2024-12-06 08:31] LABS: Urine Bacteria None Seen /hpf (None Seen)
[2024-12-06 08:50] LABS: Basophils # (auto) 0.1 10 ^3/uL (0-0.2); Basophils % (auto) 1.3 % (0.0-2.0); Eosinophils # (auto) 0.3 10 ^3/uL (0-0.8); Eosinophils % (auto) 4.8 % (0.0-7.0); Hematocrit 44.4 % (36.0-46.0); Hemoglobin 14.9 g/dL (12.2-16.2); Lymphocytes # (auto) 1.5 10 ^3/uL (0.4-5.4); Mean Corpuscular Hemoglobin 26.7 pg (28.0-32.0); Mean Corpuscular Hgb Conc. 33.6 g/dL (32.0-36.0); Mean Corpuscular Volume 79.6 fL (80.0-100.0); Monocytes # (auto) 0.5 10 ^3/uL (0-1.3); Monocytes % (auto) 8.8 % (0.0-12.0); Neutrophils # (auto) 3.3 10 ^3/uL (1.6-8.6); Neutrophils % (auto) 59.1 % (37.0-80.0); Platelet Count (auto) 136 10^3/uL (140-450); Red Blood Cells 5.58 10^6/uL (4.0-5.20); Red Cell Distribution Width 15.9 % (11.8-14.3); White Blood Cell 5.6 10^3/uL (4.4-10.8)
[2024-12-06 08:52] LABS: Urine Blood Negative /uL (Negative); Urine Clarity Clear (Clear); Urine Color Light-Yellow (Yellow); Urine Protein, UAD TRACE (Negative); Urine Specific Gravity 1.012 (1.001-1.035); Urine Squamous Epithelial Cell FEW /hpf (<5); Urine Urobilinogen Normal (Negative); Urine WBC 1 /HPF (0-5)
[2024-12-06 09:08] LABS: INR 1.05 (0.9-1.15); Partial Thromboplastin Time 29.6 SEC (24.5-34.5); Prothrombin Time 11.1 sec (9.3-11.8)
[2024-12-06 09:10] LABS: Albumin 4.4 g/dL (3.2-4.8); Anion Gap 10 (5-15); Aspartate Aminotransferase 39 U/L (13-40); BUN/Creatinine Ratio 19.1 (10.0-20.0); Blood Urea Nitrogen 17 mg/dL (9-23); Calcium 10.1 mg/dL (8.7-10.4); Carbon Dioxide 24 mmol/L (20-31); Chloride 105 mmol/L (98-107); LDL Cholesterol 74 mg/dL (< 100); Sodium 139 mmol/L (136-145); Total Protein 7.5 g/dL (5.7-8.2); Triglycerides 119 mg/dL (< 150)
[2024-12-06 09:11] LABS: Alanine Aminotransferase 45 U/L (7-40); Alkaline Phosphatase 146 U/L (46-116); Bilirubin, Total 0.9 mg/dL (0.2-1.0); Cholesterol 168 mg/dL (< 200); Glucose 142 mg/dL (74-106); HDL Cholesterol 70 mg/dL (40-59); Potassium 3.3 mmol/L (3.5-5.1)
[2024-12-06 13:06] LABS: Hepatitis A Total Antibody Positive (Negative)
[2024-12-06 13:07] LABS: Hepatitis B Surface Antibody Negative (Negative); Hepatitis B Surface Antigen Negative (Negative)
[2024-12-06 13:12] LABS: Hepatitis B Core Total AB Positive (Negative); Hepatitis C Antibody Positive (Negative)
[2024-12-06 14:28] LABS: RAPID PLASMA REAGIN REACTIVE (NONREACTIVE)
== END | disposition home or self-care (01) ==
LOC: LAB 07:52
PROVIDERS: ATTEND Nurse Practitioner Family
DX: I11.0 Hypertensive heart disease with heart failure (principal); I50.32 Chronic diastolic (congestive) heart failure; E11.9 Type 2 diabetes mellitus without complications; B18.2 Chronic viral hepatitis C; Z12.11 Encounter for screening for malignant neoplasm of colon; Z11.3 Encounter for screening for infections with a predominantly sexual mode of transmission; Z00.01 Encounter for general adult medical examination with abnormal findings
CPT/HCPCS: 36415; 80053; 80061; 81001; 82306; 83036; 84443; 85025; 85610; 85730; 86592; 86593; 86703; 86704; 86706; 86708; 86780; 86803; 87340; 87902

== ENCOUNTER 2024-12-30 13:55 | Emergency (ER) | payer MEDICARE, MEDICAID ==
[~2024-12-30] VITALS: Ht 152.4 cm; Wt 64.9 kg
[2024-12-30] MEDS ORDERED: HYDR-4902 PO (14:42)
--- NOTE | 2024-12-30 14:50 | ED.PDOC ---
Back pain HPI HPI Comments 69 y.o female with PMHx of HTN and sciatica, presents to the ED for a chief complaint of back pain radiating down her right leg x 6 days. Patient reports pain is sharp, worsens if she tries to bear weight to right side and has no alleviating factors. Patient reports similar pain in the past due to her sciatica, was prescribed codeine and Tramadol but has no relief. Patient denies any recent falls, trauma, numbness or tingling sensation. Chief Complaint: Back Pain Time Seen by MD: 14:37 Primary Care Provider: UNKNOWN Reviewed Notes: Nurses Notes, Medications, Allergies Allergies: Coded Allergies: NO KNOWN ALLERGIES (Unverified , 04/28/15) Home Meds Active Scripts Hydrocodone-Acetaminophen (Hydrocodone Bitartrate/AC 5-325 mg) 1 Tab Tab, 1 TAB PO Q8HP PRN for 7 Days, #21 TAB Prov:JOSE MIGUEL GARCIA MD 12/30/24 Linezolid (Zyvox) 600 Mg Tab, 600 MG PO BID for 30 Days, #60 TAB Prov:WILLOW BURKS 06/05/24 Multiple Vitamin (Mvi Tab) 1 Tab Tb, 1 TAB PO DAILY for 30 Days, #30 TAB Prov:WILLOW BURKS 06/05/24 Losartan Potassium (Losartan Potassium) 50 Mg Tab, 100 MG PO DAILY for 30 Days, #60 TAB Prov:WILLOW BURKS 06/05/24 Ascorbic Acid (VITAMIN C TABLET) 500 Mg Tb, 500 MG PO BID for 30 Days, #60 TAB Prov:WILLOW BURKS 06/05/24 Amlodipine Besylate (NORVASC TABLET) 5 Mg Tb, 10 MG PO DAILY for 30 Days, #60 TAB Prov:WILLOW BURKS 06/05/24 Acetaminophen (Acetaminophen) 325 Mg Tab, 650 MG PO Q6HP PRN for 10 Days, #80 TAB Prov:WILLOW BURKS 06/05/24 Reported Medications Paroxetine Hydrochloride (Paroxetine Hydrochloride) 20 Mg Tab, 1 TAB PO DAILY 05/29/24 Montelukast Sodium (MONTELUKAST SODIUM) 10 Mg Tab, 1 TAB PO DAILY 05/29/24 Empagliflozin (Jardiance) 10 Mg Tab, 1 TAB PO DAILY 05/29/24 Information Source: Patient Mode of Arrival: Wheelchair Timing: Days (6) Duration: Since onset Location of Back pain: (B) Lower back Radiates to: Posterior: (R) Buttocks, (R) Thigh Severity: Moderate Quality: Sharp Onset: Spontaneous Circumstance: Other History of: Other Modifying Factors: Nothing Past Medical History PAST MEDICAL HISTORY: DM, HTN, Liver, ID Past Medical History (Other): sciatica Surgical History: Tubal Ligation [employer]ER History: No Pertinent [employer]ICAL [employer]ER History Family History Family History: Reviewed,noncontributory to illness, Unknown Social History Smoker: Cigarettes Alcohol: Sober Drugs: Marijuana Lives In: Home Constitutional: denies: chills, diaphoresis, fatigue, fever, malaise, sweats, weakness, others EENTM: denies: blurred vision, double vision, ear bleeding, ear discharge, ear drainage, ear pain, ear ringing, eye pain, eye redness, hearing loss, mouth pain, mouth swelling, nasal discharge, nose bleeding, nose congestion, nose pain, photophobia, tearing, throat pain, throat swelling, voice changes, others Respiratory: denies: cough, hemoptysis, orthopnea, SOB at rest, shortness of breath, SOB with excertion, stridor, wheezing, others Cardiovascular: denies: chest pain, dizzy spells, diaphoresis, Dyspnea on exertion, edema, irregular heart beat, left arm pain, lightheadedness, palpitations, PND, syncope, others Gastrointestinal: denies: abdomen distended, abdominal pain, blood streaked bowels, constipated, diarrhea, dysphagia, difficulty swallowing, hematemesis, melena, nausea, poor appetite, poor fluid intake, rectal bleeding, rectal pain, vomiting, others Genitourinary: denies: abnormal vagina bleeding, burning, dyspareunia, dysuria, flank pain, frequency, hematuria, incontinence, pain, , vagina discharge, urgency, others Neurological: denies: dizziness, fainting, headache, left sided numbness, left sided weakness, numbness, paresthesia, pre-existing deficit, right sided numbness, right sided weakness, seizure, speech problems, tingling, tremors, weakness, others Musculoskeletal: reports: back pain, others (right leg pain ); denies: gout, joint pain, joint swelling, muscle pain, muscle stiffness, neck pain Integumetry: denies: bruises, change in color, change in hair/nails, dryness, laceration, lesions, lumps, rash, wounds, others Allergic/Immunocompromised: denies: Difficulty Healing, Frequent Infections, Hives, Itching, others Hematologic/Lymphatic: denies: anemia, blood clots, easy bleeding, easy bruising, swollen glands, others Endocrine: denies: excessive hunger, excessive sweating, excessive thirst, excessive urination, flushing, intolerance to cold, intolerance to heat, u nexplained weight gain, unexplained weight loss, others Psychiatric: denies: anxiety, bipolar disorder, depression, hopeless, panic disorder, schizophrenia, sleepless, suicidal, others All Other Systems: Reviewed and Negative Physical Exam General Appearance: No Apparent Distress, Obese HEENT: Normal ENT Inspection, Pharynx Normal, TMs Normal Neck: Full Range of Motion, Non-Tender, Normal, Normal Inspection Respiratory: Chest Non-Tender, Lungs Clear, No Accessory Muscle Use, No Respiratory Distress, Normal Breath Sounds Cardiovascular: No Edema, No JVD, No Murmur, No Gallop, Normal Peripheral Pu lses, Regular Rate/Rhythm Breast Exam: Deferred Gastrointestinal: No Organomegaly, Non Tender, No Pulsatile Mass, Normal Bowel Sounds, Soft Genitalia: Deferred Pelvic: Deferred Rectal: Deferred Extremities: No calf tenderness, Normal capillary refill, Normal inspection, Normal range of motion, Non-tender, No pedal edema Musculoskeletal : Location: Right Extremity Location: Back Apperance: Tenderness: Mild Neurologic: Alert, supervisor weaving II-XII nml as Tested, No Motor Deficits, Normal Affect, Normal Mood, No Sensory Deficits Cerebellar Function: Normal Reflexes: Normal Skin: Dry, Normal Color, Warm Lymphatic: No Adenopathy Was a procedure done? Was a procedure done?: No Back Pain Differential Dx Differential Diagnosis: DJD, Fracture, Hepatitis, Musculoskeletal Pain, Strain, Other (sciatica flare up ) X-Ray, Labs, Meds, VS Vital Signs Date Time Temp Pulse Resp B/P (MAP) Pulse Ox O2 Delivery O2 Flow Rate FiO2 12/30/24 14:12 98.0 89 16 164/90 (114) 95 98.0 The patient was given a dose of [place] here in the emergency department's The patient is being discharged and will follow up with the primary care doctor The patient is discharged with a diagnosis of right sciatica The patient will return to the emergency department's the condition worsens. Images Reviewed?: Images reviewed and evaluated by me Time of 1ST Reevaluation: 13:30 Reevaluation 1ST: Unchanged Patient Education/Counseling: Diagnosis, Treatment, Prognosis, Need For Follow Up Family Education/Counseling: No Family Present SEPSIS Sepsis Screen Date sepsis recognized/suspect: Dec 30, 2024 Time Sepsis recognized/suspect: 1405 Recent Procedure: No On Antibiotic Therapy: No Respiratory Rate >20: No Heart Rate >90: No Temp<36 C (96.8 F) or >38.3 C: No SBP <90 or MAP <65 mmHG: No New Acute Mental Status Change: No Is the patient on CPAP, BIPAP,: No Vital Signs Date Time Temp Pulse Resp B/P (MAP) Pulse Ox O2 Delivery O2 Flow Rate FiO2 12/30/24 14:12 98.0 89 16 164/90 (114) 95 98.0 Departure 1 Departure Time of Disposition: 14:51 Impression: Primary Impression: Right sided sciatica Disposition: 01 HOME / SELF CARE / HOMELESS Condition: Fair e-Prescriptions Hydrocodone-Acetaminophen (Hydrocodone Bitartrate/AC 5-325 mg) 1 Tab Tab 1 TAB PO Q8HP PRN for 7 Days, #21 TAB Prov: JOSE MIGUEL GARCIA MD 12/30/24 Discharged With: Self Critical Care Note Critical Care Time?: No Stability Stability form required: No I personally scribed for JOSE MIGUEL GARCIA MD ([email or web address]) on 12/30/24 at 14:50. Electronically submitted by Kathie Plascencia ([facility]). JOSE MIGUEL GARCIA MD Dec 30, 2024 14:50
[2024-12-30 16:30] VITALS: BP 146/89; PULSE 89; RESP 18; TEMP 98; O2SAT 96
[2024-12-30] MEDS: HYDROcodone-ACET 5/325MG TAB PO ONE (16:31)
== END 2024-12-30 16:40 | disposition home or self-care (01) ==
LOC: ER 13:55
DX: M54.31 Sciatica, right side (principal); F17.210 Nicotine dependence, cigarettes, uncomplicated; F12.90 Cannabis use, unspecified, uncomplicated; F10.90 Alcohol use, unspecified, uncomplicated; E11.9 Type 2 diabetes mellitus without complications; I10 Essential (primary) hypertension; Z98.51 Tubal ligation status; Z79.899 Other long term (current) drug therapy; Z79.84 Long term (current) use of oral hypoglycemic drugs; Y90.9 Presence of alcohol in blood, level not specified